=== PATIENT | male | born 1965 | race Caucasian/White ===

== ENCOUNTER → 2016-03-04 | Outpatient (CLI) | payer OTHER ==
[2016-03-04 10:27] LABS: ALBUMIN 3.9 GM/DL (3.2-5.2); ALBUMIN/GLOBULIN RATIO 1.11 (1.00-1.93); ALKALINE PHOSPHATASE 115 U/L (45-117); ALT/SGPT 33 U/L (12-78); ANION GAP 12 MEQ/L (8-16); AST/SGOT 21 U/L (15-37); BILIRUBIN,TOTAL 1.8 MG/DL (0.2-1.0); BLOOD UREA NITROGEN 18 MG/DL (7-18); CALCIUM LEVEL 8.2 MG/DL (8.5-10.1); CARBON DIOXIDE LEVEL 25 MEQ/L (21-32); CHLORIDE LEVEL 106 MEQ/L (98-107); CHOLESTEROL LEVEL 183 MG/DL (<200); CREATININE FOR GFR 1.06 MG/DL (0.70-1.30); GLOMERULAR FILTRATION RATE > 60.0 (>56); GLUCOSE, FASTING 113 MG/DL (70-105); POTASSIUM SERUM 4.1 MEQ/L (3.5-5.1); SODIUM LEVEL 143 MEQ/L (136-145); TOTAL PROTEIN 7.4 GM/DL (6.4-8.2); TRIGLYCERIDES LEVEL 759 MG/DL (<150)
== END ==
LOC: M LAB 09:09
PROVIDERS: ATTEND Family Medicine Addiction Medicine
DX: R81 Glycosuria (principal)

== ENCOUNTER → 2016-06-18 | Outpatient (CLI) | payer OTHER ==
[2016-06-18 19:33] LABS: ALBUMIN 3.7 GM/DL (3.2-5.2); ALKALINE PHOSPHATASE 112 U/L (45-117); BILIRUBIN,TOTAL 1.5 MG/DL (0.2-1.0); CALCIUM LEVEL 8.4 MG/DL (8.5-10.1); CHLORIDE LEVEL 100 MEQ/L (98-107); CHOLESTEROL LEVEL 209 MG/DL (<200); CREATININE FOR GFR 1.05 MG/DL (0.70-1.30); GLUCOSE, FASTING 181 MG/DL (70-105); POTASSIUM SERUM 3.7 MEQ/L (3.5-5.1); SODIUM LEVEL 138 MEQ/L (136-145)
[2016-06-18 20:01] LABS: AST/SGOT 51 U/L (15-37); TRIGLYCERIDES LEVEL 1756 MG/DL (<150)
[2016-06-18 20:18] LABS: ALT/SGPT 56 U/L (12-78)
[2016-06-18 20:35] LABS: ALBUMIN/GLOBULIN RATIO 1.03 (1.00-1.93); BLOOD UREA NITROGEN 11 MG/DL (7-18); TOTAL PROTEIN 7.3 GM/DL (6.4-8.2)
[2016-06-18 21:30] LABS: ANION GAP 8 MEQ/L (8-16); CARBON DIOXIDE LEVEL 30 MEQ/L (21-32)
== END ==
LOC: M LAB 16:31
PROVIDERS: ATTEND Family Medicine Addiction Medicine
DX: E78.5 Hyperlipidemia, unspecified (principal)

== ENCOUNTER → 2016-07-23 | Outpatient (CLI) | payer OTHER ==
[2016-07-23 10:39] LABS: ALBUMIN 3.7 GM/DL (3.2-5.2); ALBUMIN/GLOBULIN RATIO 1.06 (1.00-1.93); ALKALINE PHOSPHATASE 108 U/L (45-117); ALT/SGPT 54 U/L (12-78); ANION GAP 6 MEQ/L (8-16); AST/SGOT 26 U/L (15-37); BILIRUBIN,TOTAL 1.5 MG/DL (0.2-1.0); BLOOD UREA NITROGEN 17 MG/DL (7-18); CARBON DIOXIDE LEVEL 30 MEQ/L (21-32); CHLORIDE LEVEL 106 MEQ/L (98-107); CHOLESTEROL LEVEL 201 MG/DL (<200); CREATININE FOR GFR 1.13 MG/DL (0.70-1.30); GLOMERULAR FILTRATION RATE > 60.0 (>56); GLUCOSE, FASTING 116 MG/DL (70-105); POTASSIUM SERUM 3.8 MEQ/L (3.5-5.1); SODIUM LEVEL 142 MEQ/L (136-145); TOTAL PROTEIN 7.2 GM/DL (6.4-8.2); TRIGLYCERIDES LEVEL 690 MG/DL (<150)
== END ==
LOC: M LAB 09:33
PROVIDERS: ATTEND Family Medicine Addiction Medicine
DX: E78.5 Hyperlipidemia, unspecified (principal); R81 Glycosuria

== ENCOUNTER → 2016-11-05 | Outpatient (REF) | payer OTHER ==
[2016-11-05 12:25] LABS: ALBUMIN 3.9 GM/DL (3.2-5.2); ALBUMIN/GLOBULIN RATIO 1.15 (1.00-1.93); ALKALINE PHOSPHATASE 97 U/L (45-117); ALT/SGPT 41 U/L (12-78); ANION GAP 10 MEQ/L (8-16); AST/SGOT 23 U/L (15-37); BILIRUBIN,TOTAL 1.8 MG/DL (0.2-1.0); BLOOD UREA NITROGEN 18 MG/DL (7-18); CARBON DIOXIDE LEVEL 27 MEQ/L (21-32); CHLORIDE LEVEL 106 MEQ/L (98-107); CHOLESTEROL LEVEL 191 MG/DL (<200); CREATININE FOR GFR 1.14 MG/DL (0.70-1.30); GLOMERULAR FILTRATION RATE > 60.0 (>56); GLUCOSE, FASTING 118 MG/DL (70-105); SODIUM LEVEL 143 MEQ/L (136-145); TOTAL PROTEIN 7.3 GM/DL (6.4-8.2); TRIGLYCERIDES LEVEL 805 MG/DL (<150)
== END ==
LOC: M LAB REF 11:42
PROVIDERS: ATTEND Family Medicine Addiction Medicine
DX: I10 Essential (primary) hypertension (principal); E78.5 Hyperlipidemia, unspecified

== ENCOUNTER → 2017-02-03 | Outpatient (CLI) | payer OTHER ==
[2017-02-03 09:43] LABS: ALBUMIN 3.9 GM/DL (3.2-5.2); ALBUMIN/GLOBULIN RATIO 1.11 (1.00-1.93); ALKALINE PHOSPHATASE 111 U/L (45-117); ALT/SGPT 41 U/L (12-78); ANION GAP 9 MEQ/L (8-16); AST/SGOT 22 U/L (7-37); BILIRUBIN,TOTAL 1.7 MG/DL (0.2-1.0); BLOOD UREA NITROGEN 15 MG/DL (7-18); CALCIUM LEVEL 8.5 MG/DL (8.5-10.1); CARBON DIOXIDE LEVEL 26 MEQ/L (21-32); CHLORIDE LEVEL 105 MEQ/L (98-107); CHOLESTEROL LEVEL 195 MG/DL (<200); CREATININE FOR GFR 1.12 MG/DL (0.70-1.30); GLOMERULAR FILTRATION RATE > 60.0 (>56); GLUCOSE, FASTING 124 MG/DL (70-105); SODIUM LEVEL 140 MEQ/L (136-145); TOTAL PROTEIN 7.4 GM/DL (6.4-8.2); TRIGLYCERIDES LEVEL 945 MG/DL (<150)
== END ==
LOC: M LAB 08:57
PROVIDERS: ATTEND Family Medicine Addiction Medicine
DX: I10 Essential (primary) hypertension (principal); E78.5 Hyperlipidemia, unspecified

== ENCOUNTER → 2017-04-04 | Outpatient (REF) | payer OTHER ==
[2017-04-04 18:55] LABS: APPEARANCE, URINE CLEAR (CLEAR); BACTERIA, URINE AUTO NEGATIVE (NEGATIVE); BILIRUBIN, URINE AUTO NEGATIVE (NEGATIVE); BLOOD, URINE BLOOD 1+ (NEGATIVE); COLOR, URINE YELLOW (YELLOW); GLUCOSE, URINE (UA) AUTO NEGATIVE (NEGATIVE); KETONE, URINE AUTO TRACE mg/dL (NEGATIVE); LEUKOCYTE ESTERASE, URINE AUTO TRACE (NEGATIVE); MUCUS, URINE SMALL (NEGATIVE); NITRITE, URINE AUTO NEGATIVE (NEGATIVE); PROTEIN, URINE AUTO NEGATIVE (NEGATIVE); RBC, URINE AUTO 1 /HPF (0-3); SQUAMOUS EPITHELIAL CELL UR AU 0 /HPF (0-6); UROBILINOGEN, URINE AUTO 0.2 mg/dL (0.0-2.0); WBC, URINE AUTO 8 /HPF (0-3)
== END ==
LOC: M LAB REF 17:34
DX: N39.0 Urinary tract infection, site not specified (principal)
CPT/HCPCS: 81001

== ENCOUNTER → 2018-11-14 | Outpatient (CLI) | payer OTHER ==
[2018-11-14 18:45] LABS: BASO % 0.6 % (0.0-1.0); EOS # 0.4 10^3/uL (0.0-0.5); EOS % 5.8 % (0.0-3.0); HEMATOCRIT 50.2 % (42.0-52.0); HEMOGLOBIN 16.1 g/dl (13.5-17.5); LYMPH # 2.3 10^3/uL (1.5-5.0); LYMPH % 34.1 % (24.0-44.0); MEAN CORPUSCULAR HEMOGLOBIN 27.3 pg (27.0-33.0); MEAN CORPUSCULAR HGB CONC 32.1 g/dl (32.0-36.5); MEAN CORPUSCULAR VOLUME 85.1 fl (80.0-96.0); MONO # 0.5 10^3/uL (0.0-0.8); MONO % 7.9 % (0.0-5.0); NEUTROPHILS # 3.5 10^3/uL (1.5-8.5); NEUTROPHILS % 51.3 % (36.0-66.0); PLATELET COUNT, AUTOMATED 266 10^3/uL (150-450); WHITE BLOOD COUNT 6.7 10^3/uL (4.0-10.0)
[2018-11-14 18:57] LABS: ALBUMIN 3.8 GM/DL (3.2-5.2); ALT/SGPT 54 U/L (12-78); BILIRUBIN,TOTAL 1.6 MG/DL (0.2-1.0); BLOOD UREA NITROGEN 18 MG/DL (7-18); CALCIUM LEVEL 9.1 MG/DL (8.5-10.1); CARBON DIOXIDE LEVEL 28 MEQ/L (21-32); CHLORIDE LEVEL 104 MEQ/L (98-107); CHOLESTEROL LEVEL 192 MG/DL (<200); CREATININE FOR GFR 1.12 MG/DL (0.70-1.30); FREE T4 0.95 NG/DL (0.76-1.46); GLOMERULAR FILTRATION RATE > 60.0 (>56); GLUCOSE, FASTING 115 MG/DL (70-100); HDL CHOLESTEROL 32 MG/DL (>40); NON-HDL-C 160 MG/DL; POTASSIUM SERUM 3.8 MEQ/L (3.5-5.1); SODIUM LEVEL 141 MEQ/L (136-145); TOTAL PROTEIN 7.3 GM/DL (6.4-8.2); TRIGLYCERIDES LEVEL 693 MG/DL (<150)
[2018-11-14 19:01] LABS: HEMOGLOBIN A1c 6.1 %
== END ==
LOC: M WUC 10:13
PROVIDERS: ATTEND Physician Assistant
DX: Z13.29 Encounter for screening for other suspected endocrine disorder (principal); Z13.220 Encounter for screening for lipoid disorders

== ENCOUNTER 2019-07-20 10:50 | Emergency (ER) | payer OTHER ==
[~2019-07-20] VITALS: Ht 172.7 cm; Wt 93.2 kg
[2019-07-20] MEDS ORDERED: BENA20TA8 (11:01)
[2019-07-20] MEDS ORDERED: GEMF600T5 (11:01)
[2019-07-20] MEDS ORDERED: AMLO10TA5 (11:01)
[2019-07-20] MEDS ORDERED: NORC1TAB7 PO (12:39)
[2019-07-20 12:54] VITALS: BP 157/92
--- NOTE | 2019-07-20 14:25 | REP ---
REASON: Pain after trauma. There is a transverse fracture of the lateral malleolus with associated soft tissue swelling. Electronically Signed by Tulio Rose DO 07/20/2019 02:30 P
== END 2019-07-20 12:58 | disposition home or self-care (01) ==
LOC: M ED 10:50
DX: S82.61XA Displaced fracture of lateral malleolus of right fibula, initial encounter for closed fracture (principal); J30.2 Other seasonal allergic rhinitis; I10 Essential (primary) hypertension; X50.1XXA Overexertion from prolonged static or awkward postures, initial encounter; Y92.9 Unspecified place or not applicable; Y99.0 Civilian activity done for income or pay; Z87.891 Personal history of nicotine dependence; Z79.899 Other long term (current) drug therapy

== ENCOUNTER 2019-10-16 06:01 | Inpatient (IN) | payer OTHER ==
[~2019-10-16] VITALS: Ht 172.7 cm; Wt 85.2 kg
[~2019-10-16 06:01] MED LIST: AMLO1TAB25 PO; BENA20TA8 PO; GEMF600T5 PO; NORC1TAB7 PO
[2019-10-16] MEDS ORDERED: HumuLIN R (REGULAR) INSULIN (NovoLIN R) **100U/ML** PER UNIT IV ONE (07:00)
[2019-10-16] MEDS ORDERED: NS 1,000 ML IV ONE ×2 (07:00→10:00)
[2019-10-16 08:19] LABS: BASO # 0.1 10^3/uL (0.0-0.2); BASO % 0.6 % (0.0-1.0); EOS # 0.5 10^3/uL (0.0-0.5); EOS % 4.8 % (0.0-3.0); HEMATOCRIT 46.2 % (42.0-52.0); LYMPH % 10.1 % (24.0-44.0); MEAN CORPUSCULAR VOLUME 81.6 fl (80.0-96.0); MONO # 0.7 10^3/uL (0.0-0.8); MONO % 6.9 % (0.0-5.0); NEUTROPHILS # 7.6 10^3/uL (1.5-8.5); NEUTROPHILS % 76.7 % (36.0-66.0); PLATELET COUNT, AUTOMATED 237 10^3/uL (150-450); RED BLOOD COUNT 5.66 10^6/uL (4.30-6.10)
[2019-10-16] MEDS: BENAZEPRIL 5 MG TAB PO SCH (09:00)
[2019-10-16 09:09] LABS: BLOOD UREA NITROGEN 11 MG/DL (7-18); CALCIUM LEVEL 5.5 MG/DL (8.5-10.1); CARBON DIOXIDE LEVEL 14 MEQ/L (21-32); CHLORIDE LEVEL 92 MEQ/L (98-107); CREATININE FOR GFR 1.08 MG/DL (0.70-1.30); GLOMERULAR FILTRATION RATE > 60.0 (>56); GLUCOSE, FASTING 395 MG/DL (70-100); POTASSIUM SERUM 3.7 MEQ/L (3.5-5.1); SODIUM LEVEL 123 MEQ/L (136-145)
[2019-10-16 09:22] LABS: ACETONE/KETONE > 46.00 MG/DL (<2.81)
[2019-10-16 10:03] LABS: IONIZED CALCIUM 4.8 MG/DL (4.5-5.3)
[2019-10-16 10:40] LABS: HEMOGLOBIN 16.3 g/dl (13.5-17.5); MEAN CORPUSCULAR HEMOGLOBIN 28.8 pg (27.0-33.0); MEAN CORPUSCULAR HGB CONC 35.2 g/dl (32.0-36.5)
[2019-10-16 10:41] LABS: WHITE BLOOD COUNT 9.9 10^3/uL (4.0-10.0)
[2019-10-16 11:08] LABS: ALBUMIN 3.4 GM/DL (3.2-5.2); ALT/SGPT 52 U/L (12-78); BILIRUBIN,DIRECT 0.1 MG/DL (0.0-0.2); BILIRUBIN,TOTAL 1.1 MG/DL (0.2-1.0); TOTAL PROTEIN 7.8 GM/DL (6.4-8.2)
[2019-10-16 11:09] LABS: HEMOGLOBIN A1c 11.7 %
--- NOTE | 2019-10-16 11:47 | REPVR ---
PROCEDURE INFORMATION: Exam: XR Chest, 1 View Exam date and time: 10/16/2019 11:29 AM Age: 54 years old Clinical indication: Condition or disease; Other: Dka TECHNIQUE: Imaging protocol: XR of the chest Views: 1 view. COMPARISON: No relevant prior studies available. FINDINGS: Lungs: Unremarkable. No consolidation. Pleural space: Unremarkable. No pleural effusion. No pneumothorax. Heart/Mediastinum: Unremarkable. No cardiomegaly. Bones/joints: Unremarkable. IMPRESSION: No acute findings. Electronically signed by: Yury Amato On 10/16/2019 11:48:06 AM
[2019-10-16] MEDS: NS 1,000 ML IV SCH ×2 (12:21→20:45)
[2019-10-16 12:47] LABS: BILIRUBIN,TOTAL 1.3 MG/DL (0.2-1.0); CARBON DIOXIDE LEVEL 12 MEQ/L (21-32); CHLORIDE LEVEL 100 MEQ/L (98-107); GLOMERULAR FILTRATION RATE > 60.0 (>56); GLUCOSE, FASTING 298 MG/DL (70-100); POTASSIUM SERUM 3.8 MEQ/L (3.5-5.1); SODIUM LEVEL 126 MEQ/L (136-145)
[2019-10-16] MEDS ORDERED: CALCIUM GLUCONATE 1,000 MG in D5W MINI-BAG PLUS 100 ML IV ONE (13:00)
[2019-10-16 13:36] LABS: ALBUMIN 2.9 GM/DL (3.2-5.2); ALT/SGPT 45 U/L (12-78); BLOOD UREA NITROGEN 11 MG/DL (7-18); CALCIUM LEVEL 7.9 MG/DL (8.5-10.1); TOTAL PROTEIN 7.5 GM/DL (6.4-8.2)
[2019-10-16 13:46] VITALS: BP 155/93
--- NOTE | 2019-10-16 13:51 | HPEPDOC ---
[facility] Medical History & Physical Date of Admission Oct 16, 2019 Date of Service: Oct 16, 2019 Attending Physician: A History and Physical CHIEF COMPLAINT: polyuria, and epigastric pain HISTORY OF PRESENT ILLNESS: Mr. Maier is a 54 year old man with known history of Hypertension, hyperlipidemia, presented to hospital due to 1 week of polyuria and polydipsia. He initially went to his PCP yesterday and blood work was done, he got a call today that his sugar was quite high but the next available appointment is friday. he decided to come to hospital as he has not been feeling well in the past week. He mentioned feeling quite nauseated, associated with epigastric pain, not radiating. No fever. No chills. felt weak. had polyhagia and polydipsia and polyuria. No diarrhea. No cough. No toothache. On arrival noted to have DKA, given 2 liters of fluid and given Iv insulin, glucose improved, subsequent glucose improved, repeat cmp noted anion gap has closed. will admit for admission PAST MEDICAL HISTORY: 1. Hypertension 2. Hyperlipidemia 3. Recent right ankle fracture, no surgery PAST SURGICAL HISTORY: 1. appendectomy 2. back surgery SOCIAL HISTORY:lives with , does not smoke, or drink alcohol or drugs FAMILY HISTORY: mother has diabetes. ALLERGIES: Please see below. REVIEW OF SYSTEM: 10 point review of system, reviewed, negative except for those stated in HPI LABORATORY DATA: See below.Laboratory Tests 10/16/19 07:35 10/16/19 09:20 IMAGING: NONE done in ED, will obtain chest xray, abdominal xray MICROBIOLOGY: Please see below ASSESSMENT: 1. Diabetes Ketoacidosis 2. Diabetes mellitus type II, newly diagnoses 3. Hypertension 4. Hypocalcemia 5. Hyponatremia 6. Hyperlipidemia 7. Epigastric pain 8. Constipation PLAN: * Admit patient to med surg with telemetry due to hypocalcemia * IV calcium gluconate. No prior history of parathyroidectomy. * IV fluids to continue. Since repeat CMP showed improvement of anion gap, will change to levemir 10 units now. * BMP check in 6 hours. * Sliding scale insulin * Due to abdominal obesity, will add metformin as well. * diabetes education. * A1c is 11, goal is <7. * abdominal xray , lipase for epigastric discomfort. * Check urinalysis. * No clear signs of any infection * Diet: diabetes diet. * CODE: full code * DVT: lovenox * GI: PPI Vital Signs Vital Signs Date Time Temp Pulse Resp B/P (MAP) Pulse Ox O2 Delivery O2 Flow Rate FiO2 10/16/19 13:27 88 16 163/87 (112) 98 Room Air 10/16/19 06:02 98.0 Laboratory Data Labs 24H Laboratory Tests 2 10/16/19 07:35: Immature Granulocyte % (Auto) 0.9, Neutrophils (%) (Auto) 76.7H, Lymphocytes (%) (Auto) 10.1L, Monocytes (%) (Auto) 6.9H, Eosinophils (%) (Auto) 4.8H, Basophils (%) (Auto) 0.6, Neutrophils # (Auto) 7.6, Lymphocytes # (Auto) 1.0L, Monocytes # (Auto) 0.7, Eosinophils # (Auto) 0.5, Basophils # (Auto) 0.1, Nucleated Red Blood Cells % (auto) 0.0, Anion Gap 17H, Glomerular Filtration Rate > 60.0, Calcium Level 5.5*L, Whole Blood Ionized Calcium 4.8, Total Bilirubin 1.1H, Direct Bilirubin 0.1, Aspartate Amino Transf (AST/SGOT) 34, Alanine Aminotransferase (ALT/SGPT) 52, Alkaline Phosphatase 205H, Total Protein 7.8, Albumin 3.4, Albumin/Globulin Ratio 0.8, B-Hydroxybutyrate > 46.00H 10/16/19 09:20: Anion Gap 14, Glomerular Filtration Rate > 60.0, Calcium Level 7.9#L, Total Bilirubin 1.3H, Aspartate Amino Transf (AST/SGOT) 35, Alanine Aminotransferase (ALT/SGPT) 45, Alkaline Phosphatase 171H, Total Protein 7.5, Albumin 2.9L, Albumin/Globulin Ratio 0.6 10/16/19 10:45: Estimated Mean Plasma Glucose 289H, Hemoglobin A1c 11.7 CBC/BMP Laboratory Tests 10/16/19 07:35 10/16/19 09:20 Home Medications Scheduled Amlodipine Besylate (Amlodipine Besylate) 10 Mg Tablet, 10 MG PO DAILY Benazepril HCl (Benazepril HCl) 20 Mg Tablet, 20 MG PO DAILY PT RAN OUT OF MEDICATION IN MAY 2019 HAS NOT TAKEN SINCE. Gemfibrozil (Gemfibrozil) 600 Mg Tablet, 600 MG PO BID HAS BEEN TAKING MEDICATION ONLY IN THE MORNING NOT TWICE A DAY Allergies Coded Allergies: aspirin (Verified Allergy, Mild, hives, 10/16/19) SEASONAL ALLERGIES (Verified Allergy, Unknown, 07/20/19) A-FIB/CHADSVASC A-FIB History Current/History of A-Fib/PAF?: No Current PO Anticoag Therapy: No WALI MARSHALL MD Oct 16, 2019 13:51
[2019-10-16] MEDS: LEVEMIR (INSULIN DETEMIR) 1 UNITS/0.01ML SC SCH (14:09)
[2019-10-16] MEDS ORDERED: GLUCOSE 4GM CHEW TABLET PO PRN ×2 (14:15→19:15)
[2019-10-16] MEDS ORDERED: DEXTROSE 50% 50 ML SYRINGE IV PRN ×2 (14:15→19:15)
[2019-10-16] MEDS ORDERED: GLUCAGON INJ 1MG VIAL SC PRN ×2 (14:15→19:15)
--- NOTE | 2019-10-16 14:42 | REPVR ---
PROCEDURE INFORMATION: Exam: XR Abdomen, 1 View Exam date and time: 10/16/2019 2:39 PM Age: 54 years old Clinical indication: Abdominal pain; Additional info: Bloating, epigastric pain, no bm x days TECHNIQUE: Imaging protocol: XR of the abdomen. Views: Frontal supine view of the abdomen. 1 View. COMPARISON: No relevant prior studies available. FINDINGS: Gastrointestinal tract: Normal. No bowel dilation. Bones/joints: Postoperative spinal changes are seen with fixation and laminectomies. IMPRESSION: No acute abnormality. Electronically signed by: Yury Amato On 10/16/2019 14:42:33 PM
[2019-10-16] MEDS: amLODIPine 10 MG TAB PO SCH (17:20)
[2019-10-16] MEDS: MIRALAX *UNIT DOSE* 17GM PACKET PO SCH (17:21)
[2019-10-16] MEDS ORDERED: HumaLOG INSULIN (NovoLOG) PER UNIT SC SCH ×2 (17:30→21:00)
[2019-10-16 17:31] LABS: ALBUMIN 2.6 GM/DL (3.2-5.2); ALT/SGPT 45 U/L (12-78); BILIRUBIN,TOTAL 0.9 MG/DL (0.2-1.0); BLOOD UREA NITROGEN 9 MG/DL (7-18); CALCIUM LEVEL 7.4 MG/DL (8.5-10.1); CARBON DIOXIDE LEVEL 18 MEQ/L (21-32); CHLORIDE LEVEL 100 MEQ/L (98-107); CREATININE FOR GFR 0.96 MG/DL (0.70-1.30); GLOMERULAR FILTRATION RATE > 60.0 (>56); GLUCOSE, FASTING 332 MG/DL (70-100); LIPASE 1768 U/L (73-393); POTASSIUM SERUM 4.1 MEQ/L (3.5-5.1); SODIUM LEVEL 127 MEQ/L (136-145); TOTAL PROTEIN 6.4 GM/DL (6.4-8.2)
[2019-10-16] MEDS ORDERED: MORPHINE 2 MG/ML 1ML VIAL (J2270) IV PRN (19:15)
[2019-10-16] MEDS ORDERED: ONDANSETRON 4MG/2ML VIAL IV PRN (19:15)
[2019-10-16] MEDS: PANTOPRAZOLE 40MG VIAL (C9113 PER 1) IV SCH (19:50)
[2019-10-16] MEDS: ENOXAPARIN 40MG/0.4ML SYRINGE (J1650 PER 10MG) SC SCH (19:51)
[2019-10-16 20:00] VITALS: BP 148/83
[2019-10-16 21:44] LABS: CARBON DIOXIDE LEVEL 17 MEQ/L (21-32); CHLORIDE LEVEL 102 MEQ/L (98-107); CREATININE FOR GFR 0.95 MG/DL (0.70-1.30); GLOMERULAR FILTRATION RATE > 60.0 (>56); GLUCOSE, FASTING 274 MG/DL (70-100); POTASSIUM SERUM 3.2 MEQ/L (3.5-5.1); SODIUM LEVEL 130 MEQ/L (136-145)
[2019-10-16 22:00] VITALS: BP 148/83
[2019-10-16 22:22] LABS: BLOOD UREA NITROGEN 12 MG/DL (7-18); CALCIUM LEVEL 6.7 MG/DL (8.5-10.1)
[2019-10-16] MEDS ORDERED: POTASSIUM CHLORIDE 10% LIQ 20 MEQ/15 ML UDC PO ONE (22:30)
[2019-10-16] MEDS: HumaLOG INSULIN (NovoLOG) PER UNIT SC SCH (23:03)
[2019-10-17] VITALS: BP 144/81
[2019-10-17 04:00] VITALS: BP 122/67
[2019-10-17] MEDS: NS 1,000 ML IV SCH ×3 (04:00→20:00)
[2019-10-17 04:24] LABS: HEMATOCRIT 39.4 % (42.0-52.0); HEMOGLOBIN 14.8 g/dl (13.5-17.5); MEAN CORPUSCULAR HEMOGLOBIN 30.6 pg (27.0-33.0); MEAN CORPUSCULAR VOLUME 81.6 fl (80.0-96.0); PLATELET COUNT, AUTOMATED 221 10^3/uL (150-450); RED BLOOD COUNT 4.83 10^6/uL (4.30-6.10)
[2019-10-17 05:01] LABS: MEAN CORPUSCULAR HGB CONC 34.6 g/dl (32.0-36.5)
[2019-10-17] MEDS: HumaLOG INSULIN (NovoLOG) PER UNIT SC SCH ×4 (06:32→19:35)
--- NOTE | 2019-10-17 07:04 | REPVR ---
PROCEDURE INFORMATION: Exam: US Abdomen, Limited; Right Upper Quadrant Exam date and time: 10/17/2019 6:29 AM Age: 54 years old Clinical indication: Abdominal pain; Epigastric; Additional info: Eval for gallstone induced pancreatitis TECHNIQUE: Imaging protocol: US abdomen. Real time ultrasound with image documentation. Limited exam focused on the right upper quadrant. COMPARISON: No relevant prior studies available. FINDINGS: Liver: The liver is diffusely echogenic. No focal hepatic lesion is seen. Gallbladder: No calcified gallstones are seen. Echogenic nonshadowing gallbladder mural foci seen the largest measuring 4 mm. No sonographic Roach's sign was elicited. Common bile duct: The CBD is normal in caliber measuring 4-5 mm. Pancreas: There is a 1.4 x 1.7 x 1.6 cm pancreatic head cyst. Right kidney: The right kidney measures 13.0 x 4.9 x 4.9 cm. The right renal cortical parenchymal echogenicity is within normal limits. There is no renal mass, stone, cyst or hydronephrosis. IMPRESSION: 1. Fatty infiltration of the liver. 2. No cholelithiasis or sonographic evidence of cholecystitis. 3. Likely gallbladder wall polyps the largest measuring 4 mm. Follow-up ultrasound in 1 year is suggested. 4. 1.4 x 1.7 x 1.6 cm cystic lesion in the pancreatic head. Further characterization with MRI of the pancreas with contrast with MRCP is suggested. Electronically signed by: Ken Mckeon On 10/17/2019 07:04:14 AM
[2019-10-17 07:10] LABS: ALBUMIN 2.3 GM/DL (3.2-5.2); BILIRUBIN,TOTAL 1.2 MG/DL (0.2-1.0); BLOOD UREA NITROGEN 9 MG/DL (7-18); CALCIUM LEVEL 8.1 MG/DL (8.5-10.1); CARBON DIOXIDE LEVEL 19 MEQ/L (21-32); CHLORIDE LEVEL 104 MEQ/L (98-107); GLOMERULAR FILTRATION RATE > 60.0 (>56); GLUCOSE, FASTING 199 MG/DL (70-100); LIPASE 969 U/L (73-393); MAGNESIUM LEVEL 1.8 MG/DL (1.8-2.4); POTASSIUM SERUM 3.8 MEQ/L (3.5-5.1); SODIUM LEVEL 132 MEQ/L (136-145); TOTAL PROTEIN 6.2 GM/DL (6.4-8.2)
[2019-10-17 07:37] LABS: ALT/SGPT 38 U/L (12-78)
[2019-10-17 08:00] VITALS: BP 111/67
[2019-10-17] MEDS: amLODIPine 10 MG TAB PO SCH (08:40)
[2019-10-17] MEDS: BENAZEPRIL 5 MG TAB PO SCH (08:40)
[2019-10-17] MEDS: LEVEMIR (INSULIN DETEMIR) 1 UNITS/0.01ML SC SCH (08:41)
[2019-10-17] MEDS: MIRALAX *UNIT DOSE* 17GM PACKET PO SCH (08:48)
--- NOTE | 2019-10-17 10:47 | IPNPDOC ---
Text Note Date of Service The patient was seen on 10/17/19. NOTE Subjective: patient seen today, no events overnight. He feels much better. His pain is 1/10, he is comfortable. No vomiting. He is starving he said. passing gas, not having a BM yet but does not want a laxative. Objective: Vital Sign - Last 24 Hours 10/16/19 10/16/19 10/16/19 10/16/19 13:27 13:46 19:51 20:01 Temp 98.3 Pulse 88 86 Resp 16 20 20 16 B/P (MAP) 163/87 (112) 155/93 (113) Pulse Ox 98 98 98 O2 Delivery Room Air Room Air 10/16/19 10/17/19 10/17/19 10/17/19 22:00 00:00 04:00 08:00 Temp 98.0 98.4 98.0 98.5 Pulse 90 79 80 86 Resp 18 20 16 16 B/P (MAP) 148/83 (104) 144/81 (102) 122/67 (85) 111/67 (82) Pulse Ox 96 98 97 98 O2 Delivery Room Air Room Air Room Air Room Air 10/17/19 10/17/19 08:40 08:40 Pulse 86 B/P (MAP) 111/67 111/67 general: well groomed gentleman, not in any respiratory distress, awake, alert, oriented x 3. HEENT: anicteric sclerae, no nasal discharges, no throat exudates noted, EOM intact, PERRLA, no facial asymmetry NECK: supple,no carotid bruits noted, no tenderness CHEST: clear breath sounds, no rales or wheezing noted CVS: s1 and s2 distinct, no murmurs noted, ABdomen: obese abdomen, positive bowel sounds, no rigidity, no tenderness, negative granado's sign US abdomen IMPRESSION: 1. Fatty infiltration of the liver. 2. No cholelithiasis or sonographic evidence of cholecystitis. 3. Likely gallbladder wall polyps the largest measuring 4 mm. Follow-up ultrasound in 1 year is suggested. 4. 1.4 x 1.7 x 1.6 cm cystic lesion in the pancreatic head. Further characterization with MRI of the pancreas with contrast with MRCP is suggested. ASSESSMENT: 1. Diabetes Ketoacidosis, resolved 2. Diabetes mellitus type II, newly diagnosed, hyperglycemia, uncontrolled a1c 11 3. Hypertension 4. Hypocalcemia, improved 5. Hyponatremia 6. Hyperlipidemia 7. Epigastric pain, secondary to acute pancreatitis 8. Pancreatic cystic lesion noted in US 8. Constipation 9. Mildly elevated lfts on admission -- all diagnoses present on admission PLANS: * Glucose is controlled. no more pain, advanced diet to full liquid now. * Levemir 10 units to continue to avoid DKA. change to Ac and HS. * IV fluids to continue for now. No cholelithiasis, lfts trending down. * Discussed about US findings and MRI plans today. MRCP with and withou contrast. * Pain control * transfer to med surg. * moderate risk TEWALI MD Oct 17, 2019 10:41
[2019-10-17] MEDS ORDERED: GLUCAGON INJ 1MG VIAL SC PRN (11:00)
[2019-10-17] MEDS ORDERED: GLUCOSE 4GM CHEW TABLET PO PRN (11:00)
[2019-10-17] MEDS ORDERED: DEXTROSE 50% 50 ML SYRINGE IV PRN (11:00)
[2019-10-17] MEDS ORDERED: PROHANCE 279.3MG/ML 5ML VIAL As Ordered ONE (11:29)
[2019-10-17] MEDS ORDERED: PROHANCE 279.3MG/ML 15ML VIAL As Ordered ONE (11:30)
--- NOTE | 2019-10-17 13:15 | REPVR ---
PROCEDURE INFORMATION: Exam: MR Abdomen Without Contrast Exam date and time: 10/17/2019 11:39 AM Age: 54 years old Clinical indication: Pain and abnormal findings; Abnormal radiologic finding of the abdomen; Radiologic exam and body structure: Ultrasound; Abdominal pain; Epigastric; Patient HX: Abd pain, f/u to u/s on pacs and read by vrad; Additional info: Pancreatic lesion seen in US TECHNIQUE: Imaging protocol: MR of the abdomen without contrast. 3D rendering (Not supervised by radiologist): MIP and/or 3D reconstructed images were created by the technologist. COMPARISON: Abdomen, limited US 10/17/2019 6:13 AM FINDINGS: Liver: No mass. Gallbladder and bile ducts: The extrahepatic bile ducts are normal, measuring 5.7 mm. No choledocholithiasis. Pancreas: The pancreas is mildly enlarged with mild peripancreatic edema. Thickening of the anterior bilateral Gerota fascia is present. No pancreatic ductal dilatation. Contiguous pancreatic neck cysts are present measuring 2.0 cm and 0.9 cm. Spleen: Unremarkable. No splenomegaly. Adrenals: Unremarkable. No mass. Kidneys and ureters: Bilateral benign renal cysts, largest on the left measuring 2.1 cm. Stomach and bowel: 2nd and 3rd portion duodenal mural and periduodenal edema which is felt to be secondary. Intraperitoneal space: No free fluid. Arteries: No abdominal aortic aneurysm. Veins: The retropancreatic splenic vein and portal vein appear patent. Bones/joints: Unremarkable. Soft tissues: Unremarkable. IMPRESSION: 1. Pancreatitis. 2. Small intrapancreatic cysts which may represent pseudocysts. Comparison with prior studies recommended, if available. Otherwise followup to exclude other types of cyst (e.g. intraductal papillary mucinous neoplasia) may be helpful. 3. Bilateral benign renal cysts. 4. No extrahepatic biliary ductal dilatation or choledocholithiasis. COMMENTS: Consistent with the [employer]'s Incidental Findings Committee white paper (J Am Arnaldo Radiol 2018): Any incidental renal lesion less than 1.0 cm or classified as too small to characterize, or any incidental cystic renal lesion characterized as simple-appearing, is likely benign. No follow-up imaging is recommended for these lesions per consensus recommendations based on imaging criteria. Electronically signed by: Trevor Moreau On 10/17/2019 13:15:42 PM
--- NOTE | 2019-10-17 13:23 | REPVR ---
PROCEDURE INFORMATION: Exam: MR Abdomen Without and With Contrast Exam date and time: 10/17/2019 12:31 PM Age: 54 years old Clinical indication: Pain and abnormal findings; Abnormal radiologic finding of the abdomen; Radiologic exam and body structure: Ultrasound; Abdominal pain; Epigastric; Patient HX: Abd pain, f/u to u/s on pacs and read by vrad; Additional info: Pancreatic lesion seen in US TECHNIQUE: Imaging protocol: MR of the abdomen without and with intravenous contrast. Contrast material: PROHANCE; Contrast volume: 17 ml; Contrast route: INTRAVENOUS (IV); COMPARISON: Abdomen, limited US 10/17/2019 6:13 AM FINDINGS: Liver: Moderately decreased signal of the liver on out of phase imaging relative to in phase imaging. Gallbladder and bile ducts: The extrahepatic bile ducts are normal, measuring 5.7 mm. No choledocholithiasis. Pancreas: The pancreas is mildly enlarged with mild peripancreatic edema. Thickening of the anterior bilateral Gerota fascia is present. No pancreatic ductal dilatation. Contiguous pancreatic neck cysts are present measuring 2.0 cm and 0.9 cm. Spleen: Unremarkable. No splenomegaly. Adrenals: Unremarkable. No mass. Kidneys and ureters: Bilateral benign renal cysts, largest on the left measuring 2.1 cm. Stomach and bowel: 2nd and 3rd portion duodenal mural and periduodenal edema which is felt to be secondary. Intraperitoneal space: No free fluid. Arteries: No abdominal aortic aneurysm. Veins: The retropancreatic splenic vein and portal vein appear patent. Bones/joints: Bilateral lumbar spinal pedicle screw and jeanne systems. Soft tissues: Unremarkable. IMPRESSION: 1. Pancreatitis. 2. Small intrapancreatic cysts which may represent pseudocysts. Comparison with prior studies recommended, if available. Otherwise followup to exclude other types of cyst (e.g. intraductal papillary mucinous neoplasia) may be helpful. 3. Fatty infiltration of the liver. 4. Bilateral benign renal cysts. 5. No extrahepatic biliary ductal dilatation or choledocholithiasis. COMMENTS: Consistent with the [employer]'s Incidental Findings Committee white paper (J Am Arnaldo Radiol 2018): Any incidental renal lesion less than 1.0 cm or classified as too small to characterize, or any incidental cystic renal lesion characterized as simple-appearing, is likely benign. No follow-up imaging is recommended for these lesions per consensus recommendations based on imaging criteria. Electronically signed by: Trevor Moreau On 10/17/2019 13:24:24 PM
[2019-10-17] MEDS: ENOXAPARIN 40MG/0.4ML SYRINGE (J1650 PER 10MG) SC SCH (19:35)
[2019-10-17] MEDS: PANTOPRAZOLE 40MG VIAL (C9113 PER 1) IV SCH (19:36)
[2019-10-17 20:00] VITALS: BP 128/79
[2019-10-18] MEDS: NS 1,000 ML IV SCH ×2 (03:34→11:10)
[2019-10-18 04:42] VITALS: BP 130/74
[2019-10-18 04:42] LABS: HEMATOCRIT 37.9 % (42.0-52.0); HEMOGLOBIN 13.8 g/dl (13.5-17.5); MEAN CORPUSCULAR HEMOGLOBIN 29.7 pg (27.0-33.0); MEAN CORPUSCULAR HGB CONC 36.4 g/dl (32.0-36.5); MEAN CORPUSCULAR VOLUME 81.7 fl (80.0-96.0); PLATELET COUNT, AUTOMATED 218 10^3/uL (150-450); RED BLOOD COUNT 4.64 10^6/uL (4.30-6.10); WHITE BLOOD COUNT 5.5 10^3/uL (4.0-10.0)
[2019-10-18 05:38] VITALS: BP 134/79
[2019-10-18 05:56] LABS: ALBUMIN 2.2 GM/DL (3.2-5.2); ALT/SGPT 29 U/L (12-78); BILIRUBIN,TOTAL 0.7 MG/DL (0.2-1.0); BLOOD UREA NITROGEN 6 MG/DL (7-18); CALCIUM LEVEL 8.5 MG/DL (8.5-10.1); CARBON DIOXIDE LEVEL 21 MEQ/L (21-32); CHLORIDE LEVEL 106 MEQ/L (98-107); CHOLESTEROL LEVEL 363 MG/DL (<200); CHOLESTEROL RISK RATIO 17.285 (<5); GLOMERULAR FILTRATION RATE > 60.0 (>56); GLUCOSE, FASTING 183 MG/DL (70-100); HDL CHOLESTEROL 21 MG/DL (>40); LIPASE 788 U/L (73-393); NON-HDL-C 342 MG/DL; POTASSIUM SERUM 3.5 MEQ/L (3.5-5.1); SODIUM LEVEL 136 MEQ/L (136-145); TOTAL PROTEIN 6.1 GM/DL (6.4-8.2); TRIGLYCERIDES LEVEL 1738 MG/DL (<150)
[2019-10-18] MEDS: HumaLOG INSULIN (NovoLOG) PER UNIT SC SCH ×4 (07:30→21:52)
[2019-10-18] MEDS: amLODIPine 10 MG TAB PO SCH (09:18)
[2019-10-18] MEDS: LEVEMIR (INSULIN DETEMIR) 1 UNITS/0.01ML SC SCH (09:19)
[2019-10-18] MEDS: MIRALAX *UNIT DOSE* 17GM PACKET PO SCH (09:19)
[2019-10-18 14:00] VITALS: BP 144/82
--- NOTE | 2019-10-18 15:51 | IPNPDOC ---
Text Note Date of Service The patient was seen on 10/18/19. NOTE Hospital course: Mr. Maier is a 54 year old man with known HLD, and HTN presented to hospital due to polyuria, noted new onset diabetes, DKA, resolved. Epigastric pain noted pancreatitis. Neg gallstones. MRCP done due to cyst in pancreas. No new meds. Benazepril on hold, ?drug induced. No history of pancreatic cancer in family, MRCP showed no mass. Subjective: pain is improving, 5/10, no vomiting, no diarrhea. passing gas. No dyspnea. glucos eis controlled Vital Sign - Last 24 Hours 10/17/19 10/17/19 10/18/19 10/18/19 20:00 22:00 04:42 05:38 Temp 97.9 98.1 97.8 Pulse 85 78 61 Resp 20 18 20 B/P (MAP) 128/79 (95) 130/74 (92) 134/79 (97) Pulse Ox 95 96 97 O2 Delivery Room Air Room Air Room Air 10/18/19 10/18/19 09:18 14:00 Temp 98.0 Pulse 88 Resp 17 B/P (MAP) 118/76 144/82 (102) Pulse Ox 96 O2 Delivery Room Air general: well groomed gentleman, not in any respiratory distress, awake, alert, oriented x 3. HEENT: anicteric sclerae, no nasal discharges, no throat exudates noted, EOM intact, PERRLA, no facial asymmetry NECK: supple,no carotid bruits noted, no tenderness CHEST: clear breath sounds, no rales or wheezing noted CVS: s1 and s2 distinct, no murmurs noted, ABdomen: obese abdomen, positive bowel sounds, no rigidity, no tenderness, negative granado's sign Extremities: No edema, no calf tendenress noted PRODUCTION SUPV; awake, alert, oriented x 3. No focal deficits noted. No sensory deficits US abdomen IMPRESSION: 1. Fatty infiltration of the liver. 2. No cholelithiasis or sonographic evidence of cholecystitis. 3. Likely gallbladder wall polyps the largest measuring 4 mm. Follow-up ultrasound in 1 year is suggested. 4. 1.4 x 1.7 x 1.6 cm cystic lesion in the pancreatic head. Further characterization with MRI of the pancreas with contrast with MRCP is suggested. MRCP done: no mass, pancreatic cyst noted ASSESSMENT: 1. Acute pancreatitis secondary to severe hypertriglyceridemia 1. Diabetes Ketoacidosis, resolved 2. Diabetes mellitus type II, newly diagnosed, hyperglycemia, uncontrolled a1c 11 3. Hypertension 4. Hypocalcemia, improved 5. Hyponatremia 6. Hyperlipidemia 7. Epigastric pain, secondary to acute pancreatitis 8. Pancreatic cystic lesion noted in US 8. Constipation 9. Mildly elevated lfts on admission -- all diagnoses present on admission pLANS: continue with IV fluids, slowly advance diet as long as tolerated. pain control Noted Lipid screen - significantly elevated triglycerides. He has gemfibrozil as home med, but he is only taking once a day dosing. Last check of triglycerides was a while back he said. No to elevated LDL as well, once LFTs trends down, advised to add statin. continue with levemir. will add metformin for his a1c. it is 11. extensive discussion on his condition, diabetes care. Diabetes education to continue. moderate risk VS,Fishbone, I+O VS, Fishbone, I+O Laboratory Tests 10/18/19 04:10 Vital Signs Date Time Temp Pulse Resp B/P (MAP) Pulse Ox O2 Delivery O2 Flow Rate FiO2 10/18/19 14:00 98.0 88 17 144/82 (102) 96 Room Air I&O- Last 24 Hours up to 6 AM 10/18/19 06:00 Intake Total 3150 ml Output Total 3025 ml Balance 125 ml WALI MARSHALL MD Oct 18, 2019 15:51
[2019-10-18] MEDS: gemfibroziL 600 MG TAB PO SCH (17:00)
[2019-10-18] MEDS: ENOXAPARIN 40MG/0.4ML SYRINGE (J1650 PER 10MG) SC SCH (21:52)
[2019-10-18 22:00] VITALS: BP 158/88
[2019-10-18] MEDS: PANTOPRAZOLE 40MG TAB (PROTONIX) PO SCH (22:21)
[2019-10-19 06:00] VITALS: BP 105/66
[2019-10-19] MEDS: gemfibroziL 600 MG TAB PO SCH ×2 (08:41→18:14)
[2019-10-19] MEDS: LEVEMIR (INSULIN DETEMIR) 1 UNITS/0.01ML SC SCH (08:42)
[2019-10-19] MEDS: amLODIPine 10 MG TAB PO SCH (08:43)
[2019-10-19] MEDS: MIRALAX *UNIT DOSE* 17GM PACKET PO SCH (08:43)
[2019-10-19] MEDS: HumaLOG INSULIN (NovoLOG) PER UNIT SC SCH ×4 (08:43→20:54)
[2019-10-19 14:00] VITALS: BP 142/84
--- NOTE | 2019-10-19 17:52 | IPNPDOC ---
Date Seen The patient was seen on 10/19/19. Progress Note SUBJECTIVE: Blood sugars better controlled; however, increased levemir today, started statin in addition to fibrate. Needs to receive additional diabetic teaching with flex pen today and will see how he tolerates higher dose insulin over the day/night. Will need scripts on discharge for all materials and glucometer if we cannot provide one for him. Still not clear on what he should eat and not eat. Denies n/v/d, fevers, chills, abdominal pain, shortness of breath, chest pain. OBJECTIVE PHYSICAL EXAMINATION: VITAL SIGNS: Please see below. GENERAL: in NAD, resting in bed. 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 No focal deficits noted. No sensory deficits LABORATORY DATA, IMAGING STUDIES, MICROBIOLOGY: Please see below. US abdomen: 1. Fatty infiltration of the liver. 2. No cholelithiasis or sonographic evidence of cholecystitis. 3. Likely gallbladder wall polyps the largest measuring 4 mm. Follow-up ultrasound in 1 year is suggested. 4. 1.4 x 1.7 x 1.6 cm cystic lesion in the pancreatic head. Further characterization with MRI of the pancreas with contrast with MRCP is suggested. MRCP: no mass, pancreatic cyst noted ASSESSMENT: 54 y/o M with admitted for further treatment/management and education on new onset DM type II, resolved DKA, acute pancreatitis 2/2 to severe hypertriglyceridemia. PLAN: 1. Acute pancreatitis secondary to severe hypertriglyceridemia. Lipase trending down, abdominal pain improving. Tolerating diet well. Started on statin in addition to fibrate today but really needs strict management of uncontrolled DM type II. C/w treatment below, diet. 2. Diabetes mellitus type II, newly diagnosed, hyperglycemia. Resolved DKA. Uncontrolled HbA1c 11, BS >200 overnight, 190 this AM. Increased levemir further today, cover with ISS. Not starting PO metformin currently, as patient needs insulin more than anything now. C/w consistent carb diet, ISS, AC/HS finger sticks. Will need training with flex pen, glucometer. 3. Hypertension. Stable. 4. Hyperlipidemia. TG and cholesterol elevated. C/w fibrate and statin med. 5. Fatty liver 2/2 to HLD. C/w treatment above, needs close follow up with PCP, diet and exercise plan. 8. Pancreatic cystic lesion noted in US. F/u with PCP, will need repeat f/u as o/p. 9. DVT px. Enoxaparin. DISPOSITION: Currently admitted under acute inpatient. If tolerates insulin adjustment and receives additional education, discharge planned in AM. VS, I&O, 24H, Fishbone Vital Signs/I&O Vital Signs Date Time Temp Pulse Resp B/P (MAP) Pulse Ox O2 Delivery O2 Flow Rate FiO2 10/19/19 14:00 97.5 94 22 142/84 (103) 96 Room Air I&O- Last 24 Hours up to 6 AM 10/19/19 05:59 Intake Total 1997 ml Output Total 3850 ml Balance -1853 ml Current Medications Current Medications Medications (Trade) Dose Ordered Sig/Neftaly Route PRN Reason Start Time Stop Time Status Last Admin Dose Admin Amlodipine Besylate (Norvasc) 10 mg DAILY PO 10/16/19 09:00 10/19/19 08:43 Benazepril HCl (Lotensin) 5 mg DAILY PO 10/16/19 09:00 10/17/19 18:51 DC 10/17/19 08:40 Dextrose (Dextrose 50%) 25 ml ASDIRECTED PRN IV SEE LABEL COMMENTS 10/16/19 14:15 10/16/19 19:21 DC Dextrose (Dextrose 50%) 25 ml ASDIRECTED PRN IV SEE LABEL COMMENTS 10/16/19 19:15 10/17/19 10:48 DC Dextrose (Dextrose 50%) 25 ml ASDIRECTED PRN IV SEE LABEL COMMENTS 10/17/19 11:00 Enoxaparin Sodium (Lovenox) 40 mg QHS SC 10/16/19 21:00 10/18/19 21:52 Gemfibrozil (Lopid) 600 mg BID@0730,1730 PO 10/18/19 17:30 10/19/19 08:41 Glucagon (Glucagon) 1 mg ASDIRECTED PRN SC SEE LABEL COMMENTS 10/16/19 14:15 10/16/19 19:21 DC Glucagon (Glucagon) 1 mg ASDIRECTED PRN SC SEE LABEL COMMENTS 10/16/19 19:15 10/17/19 10:48 DC Glucagon (Glucagon) 1 mg ASDIRECTED PRN SC SEE LABEL COMMENTS 10/17/19 11:00 Glucose (Glucose) 16 GM ASDIRECTED PRN PO SEE LABEL COMMENTS 10/16/19 14:15 10/16/19 19:22 DC Glucose (Glucose) 16 GM ASDIRECTED PRN PO SEE LABEL COMMENTS 10/16/19 19:15 10/17/19 10:48 DC Glucose (Glucose) 16 GM ASDIRECTED PRN PO SEE LABEL COMMENTS 10/17/19 11:00 Home Med (Med Rec Complete!) ASDIRECTED XX 10/16/19 12:00 10/16/19 12:02 DC Insulin Detemir (Levemir Insulin) 10 units DAILY TN 10/16/19 09:00 10/19/19 08:44 DC 10/19/19 08:42 Insulin Detemir (Levemir Insulin) 12 units DAILY TN 10/20/19 09:00 Insulin Human Lispro (HumaLOG INSULIN) SEE PROTOCOL TABLE AC TN 10/16/19 17:30 10/16/19 19:12 DC 10/16/19 17:21 Insulin Human Lispro (HumaLOG INSULIN) SEE PROTOCOL TABLE AC TN 10/17/19 12:00 10/19/19 13:14 Insulin Human Lispro (HumaLOG INSULIN) SEE PROTOCOL TABLE Q6H TN 10/17/19 00:00 10/17/19 10:55 DC 10/17/19 06:32 Insulin Human Lispro (HumaLOG INSULIN) SEE PROTOCOL TABLE QHS TN 10/16/19 21:00 10/16/19 19:12 DC Insulin Human Lispro (HumaLOG INSULIN) SEE PROTOCOL TABLE QHS TN 10/17/19 21:00 10/18/19 21:52 Morphine Sulfate (Morphine Sulfate Inj) 2 mg Q4H PRN IV MODERATE PAIN (PS 5-7) 10/16/19 19:15 10/16/19 19:51 Ondansetron HCl (ZOFRAN INJection) 4 mg Q6HP PRN IV NAUSEA OR VOMITING 10/16/19 19:15 Pantoprazole Sodium (Protonix) 40 mg DAILY@2100 PO 10/18/19 21:00 10/18/19 22:21 Pantoprazole Sodium (Protonix) 40 mg Q24H IV 10/16/19 21:00 10/18/19 22:15 DC 10/17/19 19:36 Polyethylene Glycol (Miralax) 1 pkt DAILY PO 10/16/19 09:00 10/18/19 09:19 Sodium Chloride 1,000 ml @ 125 mls/hr Q8H IV 10/16/19 12:00 10/18/19 22:05 DC 10/18/19 11:10 Allergies Coded Allergies: aspirin (Verified Allergy, Mild, hives, 10/16/19) SEASONAL ALLERGIES (Verified Allergy, Unknown, 07/20/19) Cesia Mosher MD Oct 19, 2019 17:52
[2019-10-19] MEDS ORDERED: LEVE1INJ5 SC (18:13)
[2019-10-19] MEDS ORDERED: CRES10TA PO (18:13)
[2019-10-19] MEDS: ENOXAPARIN 40MG/0.4ML SYRINGE (J1650 PER 10MG) SC SCH (20:54)
[2019-10-19] MEDS: PANTOPRAZOLE 40MG TAB (PROTONIX) PO SCH (20:54)
[2019-10-19] MEDS ORDERED: ROSUVASTATIN 10 MG TAB (CRESTOR) PO SCH (21:00)
[2019-10-19 22:00] VITALS: BP 149/80
[2019-10-20 06:00] VITALS: BP 106/68
[2019-10-20] MEDS ORDERED: BASA100I SC ×2 (08:48→11:34)
[2019-10-20] MEDS ORDERED: ATOR1TAB21 PO (08:48)
[2019-10-20] MEDS: MIRALAX *UNIT DOSE* 17GM PACKET PO SCH (09:00)
[2019-10-20] MEDS ORDERED: LEVEMIR (INSULIN DETEMIR) 1 UNITS/0.01ML SC SCH (09:00)
[2019-10-20 09:16] LABS: ALBUMIN 2.7 GM/DL (3.2-5.2); ALT/SGPT 43 U/L (12-78); BILIRUBIN,TOTAL 1.1 MG/DL (0.2-1.0); BLOOD UREA NITROGEN 9 MG/DL (7-18); CALCIUM LEVEL 8.9 MG/DL (8.5-10.1); CARBON DIOXIDE LEVEL 30 MEQ/L (21-32); CHLORIDE LEVEL 95 MEQ/L (98-107); CREATININE FOR GFR 0.71 MG/DL (0.70-1.30); GLOMERULAR FILTRATION RATE > 60.0 (>56); GLUCOSE, FASTING 253 MG/DL (70-100); POTASSIUM SERUM 3.2 MEQ/L (3.5-5.1); SODIUM LEVEL 132 MEQ/L (136-145); TOTAL PROTEIN 6.4 GM/DL (6.4-8.2)
[2019-10-20 09:20] VITALS: BP 149/89
[2019-10-20] MEDS: amLODIPine 10 MG TAB PO SCH (09:20)
[2019-10-20] MEDS: HumaLOG INSULIN (NovoLOG) PER UNIT SC SCH ×2 (09:20→11:59)
[2019-10-20] MEDS: gemfibroziL 600 MG TAB PO SCH (09:20)
[2019-10-20 09:45] LABS: HEMATOCRIT 38.3 % (42.0-52.0); HEMOGLOBIN 13.1 g/dl (13.5-17.5); MEAN CORPUSCULAR HEMOGLOBIN 27.8 pg (27.0-33.0); MEAN CORPUSCULAR HGB CONC 34.2 g/dl (32.0-36.5); MEAN CORPUSCULAR VOLUME 81.3 fl (80.0-96.0); PLATELET COUNT, AUTOMATED 251 10^3/uL (150-450); RED BLOOD COUNT 4.71 10^6/uL (4.30-6.10); WHITE BLOOD COUNT 4.7 10^3/uL (4.0-10.0)
--- NOTE | 2019-10-20 17:49 | DS.PDOC ---
Discharge Summary General Date of Admission Oct 16, 2019 at 13:00 Date of Discharge 10/20/19 Attending Physician: Cesia Mosher MD Discharge Summary HPI: Mr. Maier is a 54 year old man with known history of Hypertension, hyperlipidemia, presented to hospital due to 1 week of polyuria and polydipsia. He initially went to his PCP yesterday and blood work was done, he got a call to day that his sugar was quite high but the next available appointment is friday. he decided to come to hospital as he has not been feeling well in the past week. He mentioned feeling quite nauseated, associated with epigastric pain, not radiating. No fever. No chills. felt weak. had polyhagia and polydipsia and polyuria. No diarrhea. No cough. No toothache. On arrival noted to have DKA, given 2 liters of fluid and given Iv insulin, glucose improved, subsequent glucose improved, repeat cmp noted anion gap has closed. Admitted to ICU with insulin gtt for further care/management of DKA. HOSPITAL COURSE: HbA1c was found to be >11, new onset diabetes. TG elevated >1000 with acute pancreatitis on CT abdomen. He was later transitioned off insulin gtt to ISS, levemir daily, restarted on fibrate and started on statin medications. Blood sugars markedly improved with coverage and he recieved training with insulins during his stay. It was decided to discharge home on 10/20/19 with new glucometer, diabetic training by nutrition and nursing, aida reddy. patient is to check blood sugars four times daily 3x/week, record on blood sugar journal and f/u with PCP within 1-2 weeks after discharge. At time of discharge, patient denied abdominal pain and was tolerating consistent carbohydrate diet well, hydrating well. He denied chest pain, n/v/d, fevers, chills, shortness of breath also. ROS: neg except for what is mentioned above. PMH: 1. Hypertension 2. Hyperlipidemia 3. Recent right ankle fracture, no surgery 4. Newly diagnosed DM type II PSurgHx: 1. appendectomy 2. back surgery PSocialHx: lives with , does not smoke, or drink alcohol or drugs FamHx: mother has diabetes. ALLERGIES: Please see below. PHYSICAL EXAMINATION: VITAL SIGNS: Please see below. GENERAL: in NAD, resting in bed. HEENT: anicteric sclerae, no nasal discharges, no throat exudates noted, EOM intact, PERRLA, no facial asymmetry NECK: supple,no carotid bruits noted, no tenderness CHEST: clear breath sounds, no rales or wheezing noted CVS: s1 and s2 distinct, no murmurs noted, ABdomen: obese abdomen, positive bowel sounds, no rigidity, no tenderness, negat kendy Roach's sign Extremities: No edema, no calf tenderness noted GL[employer]ER; awake, alert, oriented x 3. No focal deficits noted. No sensory deficits LABORATORY DATA, IMAGING STUDIES, MICROBIOLOGY: Please see below. US abdomen: 1. Fatty infiltration of the liver. 2. No cholelithiasis or sonographic evidence of cholecystitis. 3. Likely gallbladder wall polyps the largest measuring 4 mm. Follow-up ultrasound in 1 year is suggested. 4. 1.4 x 1.7 x 1.6 cm cystic lesion in the pancreatic head. Further characterization with MRI of the pancreas with contrast with MRCP is suggested. MRCP: no mass, pancreatic cyst noted ASSESSMENT: 54 y/o M with admitted for further treatment/management and education on new onset DM type II, resolved DKA, acute pancreatitis 2/2 to severe hypertriglyceridemia. PLAN: 1. Acute pancreatitis secondary to severe hypertriglyceridemia. Lipase trending down, abdominal pain resolved. Tolerating diet well. Started on statin in addition to fibrate today but really needs strict management of uncontrolled DM type II. C/w treatment below, diet. 2. Diabetes mellitus type II, newly diagnosed, hyperglycemia. Resolved DKA. Uncontrolled HbA1c 11, BS better controlled. Increased levemir furtherto 19USC daily. Not starting PO metformin currently, as patient needs insulin more than anything now. Would recommend PCP to consider adding metformin BID with close monitoring. C/w consistent carb diet, ISS, AC/HS finger sticks 3 xweekly. Rece ived training with flex pen, glucometer. 3. Hypertension. Stable. 4. Hyperlipidemia. TG and cholesterol elevated. C/w fibrate and statin med. 5. Fatty liver 2/2 to HLD. C/w treatment above, needs close follow up with PCP, diet and exercise plan. 8. Pancreatic cystic lesion noted in US. F/u with PCP, will need repeat f/u as o/p. DISPOSITION: Discharged home today in improved condition. F/u with PCP within 1- 2 weeks after discharge. TIME SPENT ON DISCHARGE: Greater than 30 minutes. Vital Signs/I&Os Vital Signs Date Time Temp Pulse Resp B/P (MAP) Pulse Ox O2 Delivery O2 Flow Rate FiO2 10/20/19 09:20 87 149/89 10/20/19 06:00 97.7 18 92 Room Air I&O- Last 24 Hours up to 6 AM 10/20/19 06:00 Intake Total 3490 ml Output Total 4050 ml Balance -560 ml Laboratory Data Labs 24H Laboratory Tests 2 10/20/19 07:08: Nucleated Red Blood Cells % (auto) 0.0, Anion Gap 7L, Glomerular Filtration Rate > 60.0, Calcium Level 8.9, Total Bilirubin 1.1#H, Aspartate Amino Transf (AST/SGOT) 41H, Alanine Aminotransferase (ALT/SGPT) 43, Alkaline Phosphatase 150H, Total Protein 6.4, Albumin 2.7#L, Albumin/Globulin Ratio 0.7 CBC/BMP Laboratory Tests 10/20/19 07:08 Discharge Medications Scheduled Amlodipine Besylate (Amlodipine Besylate) 10 Mg Tablet, 10 MG PO DAILY, (Reported) Atorvastatin Calcium (Atorvastatin Calcium) 20 Mg Tablet, 20 MG PO DAILY Benazepril HCl (Benazepril HCl) 20 Mg Tablet, 20 MG PO DAILY, (Reported) PT RAN OUT OF MEDICATION IN MAY 2019 HAS NOT TAKEN SINCE. Gemfibrozil (Gemfibrozil) 600 Mg Tablet, 600 MG PO BID, (Reported) HAS BEEN TAKING MEDICATION ONLY IN THE MORNING NOT TWICE A DAY Insulin Glargine,Hum.rec.anlog (Basaglar Kwikpen U-100) 100 Unit/1 Ml Insuln.pen, 19 UNIT SC DAILY Allergies Coded Allergies: aspirin (Verified Allergy, Mild, hives, 10/16/19) SEASONAL ALLERGIES (Verified Allergy, Unknown, 07/20/19) Current Medications Current Medications Medications (Trade) Dose Ordered Sig/Neftaly Route PRN Reason Start Time Stop Time Status Last Admin Dose Admin Amlodipine Besylate (Norvasc) 10 mg DAILY PO 10/16/19 09:00 10/20/19 13:40 DC 10/20/19 09:20 Benazepril HCl (Lotensin) 5 mg DAILY PO 10/16/19 09:00 10/17/19 18:51 DC 10/17/19 08:40 Dextrose (Dextrose 50%) 25 ml ASDIRECTED PRN IV SEE LABEL COMMENTS 10/16/19 14:15 10/16/19 19:21 DC Dextrose (Dextrose 50%) 25 ml ASDIRECTED PRN IV SEE LABEL COMMENTS 10/16/19 19:15 10/17/19 10:48 DC Dextrose (Dextrose 50%) 25 ml ASDIRECTED PRN IV SEE LABEL COMMENTS 10/17/19 11:00 10/20/19 13:40 DC Enoxaparin Sodium (Lovenox) 40 mg QHS SC 10/16/19 21:00 10/20/19 13:40 DC 10/19/19 20:54 Gemfibrozil (Lopid) 600 mg BID@0730,1730 PO 10/18/19 17:30 10/20/19 13:40 DC 10/20/19 09:20 Glucagon (Glucagon) 1 mg ASDIRECTED PRN SC SEE LABEL COMMENTS 10/16/19 14:15 10/16/19 19:21 DC Glucagon (Glucagon) 1 mg ASDIRECTED PRN SC SEE LABEL COMMENTS 10/16/19 19:15 10/17/19 10:48 DC Glucagon (Glucagon) 1 mg ASDIRECTED PRN SC SEE LABEL COMMENTS 10/17/19 11:00 10/20/19 13:40 DC Glucose (Glucose) 16 GM ASDIRECTED PRN PO SEE LABEL COMMENTS 10/16/19 14:15 10/16/19 19:22 DC Glucose (Glucose) 16 GM ASDIRECTED PRN PO SEE LABEL COMMENTS 10/16/19 19:15 10/17/19 10:48 DC Glucose (Glucose) 16 GM ASDIRECTED PRN PO SEE LABEL COMMENTS 10/17/19 11:00 10/20/19 13:40 DC Home Med (Med Rec Complete!) ASDIRECTED XX 10/16/19 12:00 10/16/19 12:02 DC Insulin Detemir (Levemir Insulin) 10 units DAILY SC 10/16/19 09:00 10/19/19 08:44 DC 10/19/19 08:42 Insulin Detemir (Levemir Insulin) 12 units DAILY SC 10/20/19 09:00 10/20/19 13:40 DC 10/20/19 09:21 Insulin Human Lispro (HumaLOG INSULIN) SEE PROTOCOL TABLE AC SC 10/16/19 17:30 10/16/19 19:12 DC 10/16/19 17:21 Insulin Human Lispro (HumaLOG INSULIN) SEE PROTOCOL TABLE AC WA 10/17/19 12:00 10/20/19 13:40 DC 10/20/19 11:59 Insulin Human Lispro (HumaLOG INSULIN) SEE PROTOCOL TABLE Q6H WA 10/17/19 00:00 10/17/19 10:55 DC 10/17/19 06:32 Insulin Human Lispro (HumaLOG INSULIN) SEE PROTOCOL TABLE QHS WA 10/16/19 21:00 10/16/19 19:12 DC Insulin Human Lispro (HumaLOG INSULIN) SEE PROTOCOL TABLE QHS WA 10/17/19 21:00 10/20/19 13:40 DC 10/19/19 20:54 Morphine Sulfate (Morphine Sulfate Inj) 2 mg Q4H PRN IV MODERATE PAIN (PS 5-7) 10/16/19 19:15 10/20/19 13:40 MS 10/16/19 19:51 Ondansetron HCl (ZOFRAN INJection) 4 mg Q6HP PRN IV NAUSEA OR VOMITING 10/16/19 19:15 10/20/19 13:40 MS Pantoprazole Sodium (Protonix) 40 mg DAILY@2100 PO 10/18/19 21:00 10/20/19 13:40 DC 10/19/19 20:54 Pantoprazole Sodium (Protonix) 40 mg Q24H IV 10/16/19 21:00 10/18/19 22:15 MS 10/17/19 19:36 Polyethylene Glycol (Miralax) 1 pkt DAILY PO 10/16/19 09:00 10/20/19 13:40 DC 10/18/19 09:19 Rosuvastatin Calcium (Crestor) 5 mg QHS PO 10/19/19 21:00 10/20/19 13:40 DC 10/19/19 20:54 Sodium Chloride 1,000 ml @ 125 mls/hr Q8H IV 10/16/19 12:00 10/18/19 22:05 MS 10/18/19 11:10 Cesia Mosher MD Oct 20, 2019 17:49
--- NOTE | 2019-11-03 11:40 | ECGEPIP ---
[facility] - ED Test Date: 2019-10-16 Pat Name: CRISTOFER MICHAEL Department: Room: - Gender: Male Therapist Speech: eduardo : 1965 Requested By: John Luis Order Number: [id number] Reading MD: Naty Davis Measurements Intervals [place] Rate: 89 P: 62 [place]: 137 QRS: 72 QRSD: 102 T: 50 QT: 353 QTc: 429 Interpretive Statements SINUS RHYTHM NONSPECIFIC T-WAVE ABNORMALITY SEE SCANNED DOWNTIME REPORT
== END 2019-10-20 13:30 | disposition home or self-care (01) | DRG 282 ==
LOC: M ED 06:01 → M ED INP 13:00 → ENRESERV 13:18 → M ICU 13:33 → M MSPAV 10-18 05:35
PROVIDERS: ADMIT Internal Medicine; ATTEND Internal Medicine
DX: K85.90 Acute pancreatitis without necrosis or infection, unspecified (principal); E11.10 Type 2 diabetes mellitus with ketoacidosis without coma; E11.65 Type 2 diabetes mellitus with hyperglycemia; E83.51 Hypocalcemia; E78.1 Pure hyperglyceridemia; E78.5 Hyperlipidemia, unspecified; Z79.899 Other long term (current) drug therapy; Z88.6 Allergy status to analgesic agent; I10 Essential (primary) hypertension; E87.1 Hypo-osmolality and hyponatremia; K59.00 Constipation, unspecified

== ENCOUNTER → 2019-11-06 | Outpatient (CLI) | payer OTHER ==
[~2019-11-06] MED LIST changes: +ATOR1TAB21 PO; +BASA100I SC; +CRES10TA PO; +LEVE1INJ5 SC
[2019-11-06 15:36] LABS: BASO % 0.8 % (0.0-1.0); EOS # 0.5 10^3/uL (0.0-0.5); EOS % 10.4 % (0.0-3.0); HEMATOCRIT 43.5 % (42.0-52.0); LYMPH # 1.4 10^3/uL (1.5-5.0); LYMPH % 28.3 % (24.0-44.0); MEAN CORPUSCULAR HEMOGLOBIN 28.2 pg (27.0-33.0); MEAN CORPUSCULAR HGB CONC 32.2 g/dl (32.0-36.5); MEAN CORPUSCULAR VOLUME 87.5 fl (80.0-96.0); MONO # 0.4 10^3/uL (0.0-0.8); MONO % 8.6 % (0.0-5.0); NEUTROPHILS # 2.6 10^3/uL (1.5-8.5); NEUTROPHILS % 51.7 % (36.0-66.0); PLATELET COUNT, AUTOMATED 289 10^3/uL (150-450); RED BLOOD COUNT 4.97 10^6/uL (4.30-6.10)
[2019-11-06 16:04] LABS: ALBUMIN 3.6 GM/DL (3.2-5.2); ALT/SGPT 42 U/L (12-78); BILIRUBIN,TOTAL 0.8 MG/DL (0.2-1.0); BLOOD UREA NITROGEN 16 MG/DL (7-18); CALCIUM LEVEL 9.1 MG/DL (8.5-10.1); CARBON DIOXIDE LEVEL 27 MEQ/L (21-32); CHLORIDE LEVEL 108 MEQ/L (98-107); CREATININE FOR GFR 0.91 MG/DL (0.70-1.30); GLOMERULAR FILTRATION RATE > 60.0 (>56); GLUCOSE, FASTING 135 MG/DL (70-100); POTASSIUM SERUM 3.8 MEQ/L (3.5-5.1); SODIUM LEVEL 139 MEQ/L (136-145)
== END ==
LOC: M WUC 08:35
PROVIDERS: ATTEND Physician Assistant
DX: E11.65 Type 2 diabetes mellitus with hyperglycemia (principal)

== ENCOUNTER → 2020-02-02 | Outpatient (CLI) | payer OTHER ==
[2020-02-02 10:55] LABS: HEMOGLOBIN A1c 5.4 %
[2020-02-02 11:18] LABS: ALBUMIN 3.9 GM/DL (3.2-5.2); ALT/SGPT 31 U/L (12-78); BILIRUBIN,TOTAL 0.7 MG/DL (0.2-1.0); BLOOD UREA NITROGEN 20 MG/DL (7-18); CARBON DIOXIDE LEVEL 27 MEQ/L (21-32); CHLORIDE LEVEL 106 MEQ/L (98-107); CHOLESTEROL LEVEL 181 MG/DL (<200); CHOLESTEROL RISK RATIO 4.414 (<5); CREATININE FOR GFR 0.96 MG/DL (0.70-1.30); GLOMERULAR FILTRATION RATE > 60.0 (>56); GLUCOSE, FASTING 93 MG/DL (70-100); HDL CHOLESTEROL 41 MG/DL (>40); LDL CHOLESTEROL 115 MG/DL (<100); LIPASE 161 U/L (73-393); NON-HDL-C 140 MG/DL; POTASSIUM SERUM 4.3 MEQ/L (3.5-5.1); SODIUM LEVEL 140 MEQ/L (136-145); TOTAL PROTEIN 7.2 GM/DL (6.4-8.2); TRIGLYCERIDES LEVEL 127 MG/DL (<150)
[2020-02-02 18:02] LABS: CREATININE, URINE 90.7 MG/DL; MALB URINE SIEMENS 14.5 MG/L; MAU/CREAT RATIO 15.9 MCG/MG (0.0-30.0)
== END ==
LOC: M WUC 08:46
PROVIDERS: ATTEND Physician Assistant
DX: E11.9 Type 2 diabetes mellitus without complications (principal); E78.2 Mixed hyperlipidemia

== ENCOUNTER → 2020-04-29 | Outpatient (CLI) | payer OTHER ==
[2020-04-29 09:29] LABS: BASO % 0.6 % (0.0-1.0); EOS # 0.4 10^3/uL (0.0-0.5); EOS % 5.2 % (0.0-3.0); HEMATOCRIT 48.1 % (42.0-52.0); HEMOGLOBIN 15.6 g/dl (13.5-17.5); LYMPH # 1.8 10^3/uL (1.5-5.0); LYMPH % 25.8 % (24.0-44.0); MEAN CORPUSCULAR HGB CONC 32.4 g/dl (32.0-36.5); MEAN CORPUSCULAR VOLUME 83.4 fl (80.0-96.0); MONO # 0.5 10^3/uL (0.0-0.8); MONO % 7.5 % (2.0-8.0); NEUTROPHILS # 4.3 10^3/uL (1.5-8.5); NEUTROPHILS % 60.5 % (36.0-66.0); PLATELET COUNT, AUTOMATED 273 10^3/uL (150-450); RED BLOOD COUNT 5.77 10^6/uL (4.30-6.10); WHITE BLOOD COUNT 7.1 10^3/uL (4.0-10.0)
[2020-04-29 09:51] LABS: HEMOGLOBIN A1c 5.2 %
[2020-04-29 10:03] LABS: ALBUMIN 4.1 GM/DL (3.2-5.2); ALT/SGPT 28 U/L (12-78); BLOOD UREA NITROGEN 21 MG/DL (7-18); CALCIUM LEVEL 9.4 MG/DL (8.5-10.1); CARBON DIOXIDE LEVEL 29 MEQ/L (21-32); CHLORIDE LEVEL 106 MEQ/L (98-107); CREATININE FOR GFR 1.09 MG/DL (0.70-1.30); GLOMERULAR FILTRATION RATE > 60.0 (>56); GLUCOSE, FASTING 105 MG/DL (70-100); POTASSIUM SERUM 4.3 MEQ/L (3.5-5.1); SODIUM LEVEL 139 MEQ/L (136-145); TOTAL PROTEIN 7.5 GM/DL (6.4-8.2)
== END ==
LOC: M LAB 08:53
PROVIDERS: ATTEND Physician Assistant
DX: E11.9 Type 2 diabetes mellitus without complications (principal)

== ENCOUNTER → 2020-08-05 | Outpatient (CLI) | payer OTHER ==
[~2020-08-05] MED LIST changes: +LOPI600T; +METF-838; +TRUL10IN
[2020-08-05 10:58] LABS: BASO % 0.7 % (0.0-1.0); EOS # 0.3 10^3/uL (0.0-0.5); EOS % 4.9 % (0.0-3.0); HEMATOCRIT 47.4 % (42.0-52.0); HEMOGLOBIN 15.5 g/dl (13.5-17.5); LYMPH # 1.6 10^3/uL (1.5-5.0); LYMPH % 26.3 % (24.0-44.0); MEAN CORPUSCULAR HEMOGLOBIN 27.9 pg (27.0-33.0); MEAN CORPUSCULAR HGB CONC 32.7 g/dl (32.0-36.5); MEAN CORPUSCULAR VOLUME 85.4 fl (80.0-96.0); MONO # 0.5 10^3/uL (0.0-0.8); MONO % 7.7 % (2.0-8.0); NEUTROPHILS # 3.7 10^3/uL (1.5-8.5); NEUTROPHILS % 59.7 % (36.0-66.0); PLATELET COUNT, AUTOMATED 263 10^3/uL (150-450); RED BLOOD COUNT 5.55 10^6/uL (4.30-6.10); WHITE BLOOD COUNT 6.1 10^3/uL (4.0-10.0)
[2020-08-05 11:19] LABS: HEMOGLOBIN A1c 5.3 %
[2020-08-05 11:29] LABS: ALT/SGPT 25 U/L (12-78); BILIRUBIN,TOTAL 0.7 MG/DL (0.2-1.0); BLOOD UREA NITROGEN 21 MG/DL (7-18); CALCIUM LEVEL 8.7 MG/DL (8.5-10.1); CARBON DIOXIDE LEVEL 28 MEQ/L (21-32); CHLORIDE LEVEL 106 MEQ/L (98-107); CREATININE FOR GFR 0.94 MG/DL (0.70-1.30); GLOMERULAR FILTRATION RATE > 60.0 (>56); GLUCOSE, FASTING 96 MG/DL (70-100); POTASSIUM SERUM 4.6 MEQ/L (3.5-5.1); SODIUM LEVEL 138 MEQ/L (136-145)
[2020-08-05 11:30] LABS: ALBUMIN 3.8 GM/DL (3.2-5.2); CHOLESTEROL LEVEL 162 MG/DL (<200); CHOLESTEROL RISK RATIO 4.153 (<5); HDL CHOLESTEROL 39 MG/DL (>40); LDL CHOLESTEROL 107 MG/DL (<100); NON-HDL-C 123 MG/DL; TOTAL PROTEIN 7.4 GM/DL (6.4-8.2); TRIGLYCERIDES LEVEL 80 MG/DL (<150)
[2020-08-05 15:54] LABS: MALB URINE SIEMENS 20.3 MG/L; MAU/CREAT RATIO 12.4 MCG/MG (0.0-30.0)
== END ==
LOC: M LAB 10:21
PROVIDERS: ATTEND Physician Assistant
DX: E11.9 Type 2 diabetes mellitus without complications (principal)

== ENCOUNTER → 2020-10-07 | Outpatient (CLI) | payer OTHER ==
[~2020-10-07] MED LIST changes: +BENA1TAB24
== END ==
LOC: M LABSMTC 09:08
PROVIDERS: ATTEND Anesthesiology
DX: Z01.812 Encounter for preprocedural laboratory examination (principal); Z20.822 Contact with and (suspected) exposure to COVID-19

== ENCOUNTER 2020-10-12 09:46 | Day surgery (SDC) | payer OTHER ==
[~2020-10-12] VITALS: Ht 172.7 cm; Wt 83.5 kg
[~2020-10-12 09:46] MED LIST changes: +NS 1,000 ML IV ONE
[2020-10-12] MEDS ORDERED: propofoL 200 MG/20 ML VIAL As Ordered ONE ×2 (10:44→10:48)
--- NOTE | 2020-10-12 11:00 | ROOR ---
Patient Name: Mervin Maier Procedure Date: 10/12/2020 10:43 AM Date of : 1965 Age: 55 Room: [facility] Gender: Male Note Status: Finalized Procedure: Colonoscopy Indications: Positive Cologuard test Providers: Anatoly Roland Jr, MD Referring MD: Jessica MODI DO Requesting Provider: Medicines: Propofol per Anesthesia Complications: No immediate complications. Procedure: Pre-Anesthesia Assessment: - Prior to the procedure, a History and Physical was performed, and patient medications and allergies were reviewed. The patient is competent. The risks and benefits of the procedure and the sedation options and risks were discussed with the patient. All questions were answered and informed consent was obtained. Patient identification and proposed procedure were verified by the physician and the nurse in the pre-procedure area and in the procedure room. Mental Status Examination: alert and oriented. Airway Examination: normal oropharyngeal airway and neck mobility. Respiratory Examination: clear to auscultation. CV Examination: normal. ASA Grade Assessment: II - A patient with mild systemic disease. After reviewing the risks and benefits, the patient was deemed in satisfactory condition to undergo the procedure. The anesthesia plan was to use moderate sedation / analgesia (conscious sedation). Immediately prior to administration of medications, the patient was re-assessed for adequacy to receive sedatives. The heart rate, respiratory rate, oxygen saturations, blood pressure, adequacy of pulmonary ventilation, and response to care were monitored throughout the procedure. The physical status of the patient was re-assessed after the procedure. The Colonoscope was introduced through the anus and advanced to the cecum, identified by appendiceal orifice and ileocecal valve. The colonoscopy was performed without difficulty. The patient tolerated the procedure well. The quality of the bowel preparation was adequate. Findings: The recto-sigmoid colon, descending colon, ascending colon, cecum, appendiceal orifice and ileocecal valve appeared normal. Three polyps were found in the rectum and transverse colon. The polyps were small in size. These polyps were removed with a hot snare. Resection was complete, but the polyp tissue was only partially retrieved. A few small-mouthed diverticula were found in the sigmoid colon. Impression: - The recto-sigmoid colon, descending colon, ascending colon, cecum, appendiceal orifice and ileocecal valve are normal. - Three small polyps in the rectum and in the transverse colon, removed with a hot snare. Complete resection. Partial retrieval. - Diverticulosis in the sigmoid colon. Recommendation: - Discharge patient to home (ambulatory). - Repeat colonoscopy in 5 years for surveillance. Procedure Code(s): --- Professional --- 28869, Colonoscopy, flexible; with removal of tumor(s), polyp(s), or other lesion(s) by snare technique Diagnosis Code(s): --- Professional --- K62.1, Rectal polyp K63.5, Polyp of colon R19.5, Other fecal abnormalities K57.30, Diverticulosis of large intestine without perforation or abscess without bleeding CPT copyright 2019 [employer]. All rights reserved. The codes documented in this report are preliminary and upon facilities specialist review may be revised to meet current compliance requirements. Anatoly Roland MD Anatoly Roland Jr, MD 10/12/2020 10:59:55 AM Electronically signed by Anatoly Roland Jr, MD Number of Addenda: 0 Note Initiated On: 10/12/2020 10:43 AM Estimated Blood Loss: Estimated blood loss: none.
[2020-10-12 11:27] VITALS: BP 120/78
== END 2020-10-12 11:29 | disposition home or self-care (01) ==
LOC: M OPP 09:46
PROVIDERS: ATTEND Surgery
DX: R19.5 Other fecal abnormalities (principal); D12.6 Benign neoplasm of colon, unspecified; K62.1 Rectal polyp; K57.30 Diverticulosis of large intestine without perforation or abscess without bleeding

== ENCOUNTER → 2021-02-10 | Outpatient (CLI) | payer OTHER ==
[~2021-02-10] MED LIST changes: +BENA-8 PO; -BENA20TA8 PO; -NS 1,000 ML IV ONE
[2021-02-10 09:11] LABS: BASO % 0.7 % (0.0-1.0); EOS # 0.5 10^3/uL (0.0-0.5); EOS % 8.1 % (0.0-3.0); HEMATOCRIT 45.9 % (42.0-52.0); HEMOGLOBIN 15.1 g/dl (13.5-17.5); LYMPH # 1.3 10^3/uL (1.5-5.0); LYMPH % 20.7 % (24.0-44.0); MEAN CORPUSCULAR HEMOGLOBIN 27.8 pg (27.0-33.0); MEAN CORPUSCULAR HGB CONC 32.9 g/dl (32.0-36.5); MEAN CORPUSCULAR VOLUME 84.4 fl (80.0-96.0); MONO # 0.5 10^3/uL (0.0-0.8); MONO % 7.6 % (2.0-8.0); NEUTROPHILS # 3.8 10^3/uL (1.5-8.5); NEUTROPHILS % 62.4 % (36.0-66.0); PLATELET COUNT, AUTOMATED 277 10^3/uL (150-450); RED BLOOD COUNT 5.44 10^6/uL (4.30-6.10)
[2021-02-10 09:31] LABS: HEMOGLOBIN A1c 5.2 %
[2021-02-10 09:35] LABS: ALBUMIN 4.1 GM/DL (3.2-5.2); ALT/SGPT 31 U/L (12-78); BILIRUBIN,TOTAL 0.9 MG/DL (0.2-1.0); BLOOD UREA NITROGEN 23 MG/DL (7-18); CALCIUM LEVEL 9.5 MG/DL (8.5-10.1); CARBON DIOXIDE LEVEL 25 MEQ/L (21-32); CHLORIDE LEVEL 105 MEQ/L (98-107); CHOLESTEROL LEVEL 165 MG/DL (<200); CHOLESTEROL RISK RATIO 4.459 (<5); CREATININE FOR GFR 1.02 MG/DL (0.70-1.30); GLOMERULAR FILTRATION RATE > 60.0 (>56); GLUCOSE, FASTING 98 MG/DL (70-100); HDL CHOLESTEROL 37 MG/DL (>40); LDL CHOLESTEROL 79 MG/DL (<100); NON-HDL-C 128 MG/DL; POTASSIUM SERUM 4.4 MEQ/L (3.5-5.1); SODIUM LEVEL 139 MEQ/L (136-145); TOTAL PROTEIN 7.6 GM/DL (6.4-8.2); TRIGLYCERIDES LEVEL 244 MG/DL (<150)
[2021-02-10 11:03] LABS: MALB URINE SIEMENS 18.3 MG/L; MAU/CREAT RATIO 14.7 MCG/MG (0.0-30.0)
== END ==
LOC: M LAB 08:07
PROVIDERS: ATTEND Physician Assistant
DX: E11.9 Type 2 diabetes mellitus without complications (principal)

== ENCOUNTER → 2021-08-11 | Outpatient (CLI) | payer OTHER ==
[2021-08-11 09:41] LABS: BASO # 0.1 10^3/uL (0.0-0.2); BASO % 0.8 % (0.0-1.0); EOS # 0.5 10^3/uL (0.0-0.5); EOS % 6.9 % (0.0-3.0); HEMATOCRIT 45.3 % (42.0-52.0); LYMPH # 1.7 10^3/uL (1.5-5.0); LYMPH % 25.4 % (24.0-44.0); MEAN CORPUSCULAR HEMOGLOBIN 27.8 pg (27.0-33.0); MEAN CORPUSCULAR HGB CONC 33.1 g/dl (32.0-36.5); MONO # 0.6 10^3/uL (0.0-0.8); MONO % 8.6 % (2.0-8.0); NEUTROPHILS # 3.8 10^3/uL (1.5-8.5); NEUTROPHILS % 57.8 % (36.0-66.0); PLATELET COUNT, AUTOMATED 250 10^3/uL (150-450); RED BLOOD COUNT 5.39 10^6/uL (4.30-6.10); WHITE BLOOD COUNT 6.6 10^3/uL (4.0-10.0)
[2021-08-11 10:01] LABS: HEMOGLOBIN A1c 5.6 %
[2021-08-11 10:05] LABS: ALBUMIN 3.7 GM/DL (3.2-5.2); ALT/SGPT 28 U/L (12-78); BILIRUBIN,TOTAL 0.7 MG/DL (0.2-1.0); BLOOD UREA NITROGEN 20 MG/DL (7-18); CARBON DIOXIDE LEVEL 24 MEQ/L (21-32); CHLORIDE LEVEL 109 MEQ/L (98-107); CREATININE FOR GFR 1.02 MG/DL (0.70-1.30); GLOMERULAR FILTRATION RATE > 60.0 (>56); GLUCOSE, FASTING 109 MG/DL (70-100); POTASSIUM SERUM 4.2 MEQ/L (3.5-5.1); SODIUM LEVEL 141 MEQ/L (136-145); TOTAL PROTEIN 7.4 GM/DL (6.4-8.2)
== END ==
LOC: M LAB 08:55
PROVIDERS: ATTEND Physician Assistant
DX: E11.9 Type 2 diabetes mellitus without complications (principal)

== ENCOUNTER → 2022-02-02 | Outpatient (CLI) | payer OTHER ==
[2022-02-02 12:04] LABS: ALBUMIN 4.1 G/DL (3.2-5.2); ALKALINE PHOSPHATASE 85 U/L (46-116); ALT/SGPT 30 U/L (7.0-40); AST/SGOT 21 U/L (<34); BILIRUBIN,TOTAL 0.6 MG/DL (0.3-1.2); BLOOD UREA NITROGEN 15 MG/DL (9-23); CALCIUM LEVEL 9.1 MG/DL (8.5-10.1); CARBON DIOXIDE LEVEL 23 MMOL/L (20-31); CHLORIDE LEVEL 107 MMOL/L (98-107); CHOLESTEROL LEVEL 152 MG/DL (<200); CHOLESTEROL RISK RATIO 3.96 (<5); CREATININE FOR GFR 1.01 MG/DL (0.70-1.30); GLOMERULAR FILTRATION RATE > 60.0 (>56); GLUCOSE, FASTING 106 MG/DL (60-100); HDL CHOLESTEROL 38.3 MG/DL (>40); LDL CHOLESTEROL 73.5 MG/DL (<100); NON-HDL-C 114 MG/DL; POTASSIUM SERUM 4.4 MMOL/L (3.5-5.1); SODIUM LEVEL 142 MMOL/L (136-145); TOTAL PROTEIN 7.6 G/DL (5.7-8.2); TRIGLYCERIDES LEVEL 201 MG/DL (<150)
[2022-02-02 12:52] LABS: HEMOGLOBIN A1c 5.5 % (4.0-6.0)
== END ==
LOC: M LAB 10:52
PROVIDERS: ATTEND Physician Assistant
DX: E11.9 Type 2 diabetes mellitus without complications (principal)

== ENCOUNTER → 2022-04-27 | Outpatient (CLI) | payer OTHER ==
[~2022-04-27] MED LIST changes: +INSU100I6 SC; -LEVE1INJ5 SC
[2022-04-27 12:20] LABS: HEMOGLOBIN A1c 6.3 % (4.0-6.0)
[2022-04-27 12:41] LABS: ALKALINE PHOSPHATASE 81 U/L (46-116); ALT/SGPT 34 U/L (7.0-40); AST/SGOT 22 U/L (<34); BLOOD UREA NITROGEN 16 MG/DL (9-23); CARBON DIOXIDE LEVEL 25 MMOL/L (20-31); CHLORIDE LEVEL 106 MMOL/L (98-107); CREATININE FOR GFR 1.04 MG/DL (0.70-1.30); GLOMERULAR FILTRATION RATE > 60.0 (>56); GLUCOSE, FASTING 94 MG/DL (60-100); POTASSIUM SERUM 4.2 MMOL/L (3.5-5.1); SODIUM LEVEL 141 MMOL/L (136-145); TOTAL PROTEIN 7.5 G/DL (5.7-8.2)
[2022-04-27 16:46] LABS: CREATININE, URINE 164.7 MG/DL; MAU/CREAT RATIO 12.1 MCG/MG (0.0-30.0)
== END ==
LOC: M LAB 11:38
PROVIDERS: ATTEND Physician Assistant
DX: E11.9 Type 2 diabetes mellitus without complications (principal)

== ENCOUNTER → 2022-08-31 | Outpatient (CLI) | payer OTHER ==
[2022-08-31 10:39] LABS: ALBUMIN 3.8 G/DL (3.2-5.2); ALKALINE PHOSPHATASE 77 U/L (46-116); ALT/SGPT 26 U/L (7.0-40); AST/SGOT 14 U/L (<34); BILIRUBIN,TOTAL 0.7 MG/DL (0.3-1.2); BLOOD UREA NITROGEN 16 MG/DL (9-23); CALCIUM LEVEL 8.4 MG/DL (8.5-10.1); CARBON DIOXIDE LEVEL 23 MMOL/L (20-31); CHLORIDE LEVEL 108 MMOL/L (98-107); CREATININE FOR GFR 1.01 MG/DL (0.70-1.30); GLOMERULAR FILTRATION RATE > 60.0 (>56); GLUCOSE, FASTING 99 MG/DL (60-100); POTASSIUM SERUM 4.1 MMOL/L (3.5-5.1); SODIUM LEVEL 141 MMOL/L (136-145); TOTAL PROTEIN 7.1 G/DL (5.7-8.2)
[2022-08-31 10:47] LABS: HEMOGLOBIN A1c 5.7 % (4.0-6.0)
== END ==
LOC: M LAB 09:36
PROVIDERS: ATTEND Physician Assistant
DX: E11.9 Type 2 diabetes mellitus without complications (principal)

== ENCOUNTER → 2023-09-11 | Outpatient (CLI) | payer OTHER ==
[2023-09-11 09:15] LABS: BASO % 0.5 % (0.0-1.0); EOS # 0.4 10^3/uL (0.0-0.5); EOS % 6.2 % (0.0-3.0); HEMATOCRIT 46.8 % (42.0-52.0); HEMOGLOBIN 15.3 g/dl (13.5-17.5); LYMPH # 1.9 10^3/uL (1.5-5.0); LYMPH % 33.3 % (24.0-44.0); MEAN CORPUSCULAR HEMOGLOBIN 28.1 pg (27.0-33.0); MEAN CORPUSCULAR HGB CONC 32.7 g/dl (32.0-36.5); MONO # 0.5 10^3/uL (0.0-0.8); MONO % 9.5 % (2.0-8.0); NEUTROPHILS # 2.8 10^3/uL (1.5-8.5); NEUTROPHILS % 50.1 % (36.0-66.0); PLATELET COUNT, AUTOMATED 268 10^3/uL (150-450); RED BLOOD COUNT 5.44 10^6/uL (4.30-6.10); WHITE BLOOD COUNT 5.7 10^3/uL (4.0-10.0)
[2023-09-11 09:49] LABS: HEMOGLOBIN A1c 5.6 % (4.0-6.0)
[2023-09-11 09:50] LABS: ALKALINE PHOSPHATASE 91 U/L (46-116); ALT/SGPT 21 U/L (7.0-40); AST/SGOT 10 U/L (<34); BILIRUBIN,TOTAL 0.8 MG/DL (0.3-1.2); BLOOD UREA NITROGEN 20 MG/DL (9-23); CALCIUM LEVEL 9.8 MG/DL (8.5-10.1); CARBON DIOXIDE LEVEL 27 MMOL/L (20-31); CHLORIDE LEVEL 107 MMOL/L (98-107); CREATININE FOR GFR 1.12 MG/DL (0.70-1.30); GLOMERULAR FILTRATION RATE > 60.0 (>56); GLUCOSE, FASTING 104 MG/DL (60-100); POTASSIUM SERUM 4.4 MMOL/L (3.5-5.1); SODIUM LEVEL 141 MMOL/L (136-145); TOTAL PROTEIN 7.2 G/DL (5.7-8.2)
[2023-09-11 12:07] LABS: CREATININE, URINE 134.5 MG/DL
[2023-09-11 12:08] LABS: MAU/CREAT RATIO 6.6 MCG/MG (0.0-30.0)
== END ==
LOC: M LAB 08:38
PROVIDERS: ATTEND Physician Assistant
DX: E11.9 Type 2 diabetes mellitus without complications (principal)

== ENCOUNTER → 2024-03-13 | Outpatient (CLI) | payer OTHER ==
[2024-03-13 10:40] LABS: BASO # 0.1 10^3/uL (0.0-0.2); BASO % 0.9 % (0.0-1.0); EOS # 1.3 10^3/uL (0.0-0.5); EOS % 18.8 % (0.0-3.0); HEMATOCRIT 45.9 % (42.0-52.0); HEMOGLOBIN 14.9 g/dl (13.5-17.5); LYMPH # 1.8 10^3/uL (1.5-5.0); LYMPH % 27.7 % (24.0-44.0); MEAN CORPUSCULAR HEMOGLOBIN 28.1 pg (27.0-33.0); MEAN CORPUSCULAR HGB CONC 32.5 g/dl (32.0-36.5); MEAN CORPUSCULAR VOLUME 86.4 fl (80.0-96.0); MONO # 0.6 10^3/uL (0.0-0.8); MONO % 8.4 % (2.0-8.0); NEUTROPHILS # 2.9 10^3/uL (1.5-8.5); NEUTROPHILS % 43.9 % (36.0-66.0); PLATELET COUNT, AUTOMATED 267 10^3/uL (150-450); RED BLOOD COUNT 5.31 10^6/uL (4.30-6.10); WHITE BLOOD COUNT 6.7 10^3/uL (4.0-10.0)
[2024-03-13 10:58] LABS: PSA SCREENING 1.13 NG/ML (< 4.00)
[2024-03-13 11:00] LABS: ALBUMIN 4.1 G/DL (3.2-5.2); ALKALINE PHOSPHATASE 85 U/L (40-129); ALT/SGPT 20 U/L (7.0-40); AST/SGOT 13 U/L (<34); BILIRUBIN,TOTAL 0.7 MG/DL (0.3-1.2); BLOOD UREA NITROGEN 22 MG/DL (9-23); CALCIUM LEVEL 8.9 MG/DL (8.3-10.6); CARBON DIOXIDE LEVEL 27 MMOL/L (20-31); CHLORIDE LEVEL 108 MMOL/L (98-107); CHOLESTEROL LEVEL 179 MG/DL (<200); CHOLESTEROL RISK RATIO 4.47 (<5); CREATININE FOR GFR 0.97 MG/DL (0.70-1.30); GLOMERULAR FILTRATION RATE > 60.0 (>49); GLUCOSE, FASTING 110 MG/DL (74-106); LDL CHOLESTEROL 113.6 MG/DL (<100); POTASSIUM SERUM 4.8 MMOL/L (3.5-5.1); SODIUM LEVEL 145 MMOL/L (136-145); TOTAL PROTEIN 7.3 G/DL (5.7-8.2); TRIGLYCERIDES LEVEL 127 MG/DL (<150)
[2024-03-13 11:18] LABS: HEMOGLOBIN A1c 5.6 % (4.0-6.0)
== END ==
LOC: M LAB 10:07
PROVIDERS: ATTEND Physician Assistant
DX: R35.1 Nocturia (principal); E78.2 Mixed hyperlipidemia; E11.9 Type 2 diabetes mellitus without complications
CPT/HCPCS: 36415; 80053; 80061; 83036; 85025; G0103

== ENCOUNTER 2024-04-08 08:39 | Observation (INO) | payer OTHER ==
[~2024-04-08] VITALS: Ht 172.7 cm; Wt 87.5 kg
[~2024-04-08 08:39] MED LIST changes: -BENA1TAB24; +BENA1TAB24 PO; -LOPI600T; +LOPI600T PO; -METF-838; +METF-838 PO
[2024-04-08 09:41] LABS: BASO % 0.2 % (0.0-1.0); EOS # 0.4 10^3/uL (0.0-0.5); EOS % 3.9 % (0.0-3.0); HEMATOCRIT 43.6 % (42.0-52.0); HEMOGLOBIN 14.7 g/dl (13.5-17.5); LYMPH % 10.7 % (24.0-44.0); MEAN CORPUSCULAR HEMOGLOBIN 28.1 pg (27.0-33.0); MEAN CORPUSCULAR HGB CONC 33.7 g/dl (32.0-36.5); MEAN CORPUSCULAR VOLUME 83.2 fl (80.0-96.0); MONO # 0.8 10^3/uL (0.0-0.8); MONO % 8.3 % (2.0-8.0); NEUTROPHILS % 76.6 % (36.0-66.0); PLATELET COUNT, AUTOMATED 282 10^3/uL (150-450); RED BLOOD COUNT 5.24 10^6/uL (4.30-6.10); WHITE BLOOD COUNT 9.1 10^3/uL (4.0-10.0)
[2024-04-08 09:46] LABS: ERYTHROCYTE SEDIMENTATION RATE 22 mm/hr (0-20)
[2024-04-08] MEDS: MORPHINE 4 MG/ML 1ML VIAL IV ONE (10:02)
[2024-04-08 10:20] LABS: LIPASE 37 U/L (12-53)
[2024-04-08 10:21] LABS: C REACTIVE PROTEIN QUANTITATIV 2.63 MG/DL (<1.0)
[2024-04-08 10:22] LABS: ALBUMIN 3.5 G/DL (3.2-5.2); ALKALINE PHOSPHATASE 101 U/L (40-129); ALT/SGPT 25 U/L (7.0-40); AST/SGOT 18 U/L (<34); BILIRUBIN,TOTAL 0.8 MG/DL (0.3-1.2); BLOOD UREA NITROGEN 21 MG/DL (9-23); CALCIUM LEVEL 8.7 MG/DL (8.3-10.6); CARBON DIOXIDE LEVEL 22 MMOL/L (20-31); CHLORIDE LEVEL 103 MMOL/L (98-107); CREATININE FOR GFR 0.91 MG/DL (0.70-1.30); GLOMERULAR FILTRATION RATE > 60.0 (>49); GLUCOSE, FASTING 175 MG/DL (74-106); POTASSIUM SERUM 4.1 MMOL/L (3.5-5.1); SODIUM LEVEL 139 MMOL/L (136-145); TOTAL PROTEIN 7.1 G/DL (5.7-8.2)
[2024-04-08 10:25] LABS: CK-MB VALUE MASS < 1.0 NG/ML (<3.6)
[2024-04-08 10:30] LABS: CPK CREATINE PHOSPHOKINASE 110 U/L (46-171)
[2024-04-08] MEDS: HYDROMORPHONE HCL 0.5 MG/ 0.5 ML SYRINGE IV PRN ×2 (10:40→16:22)
[2024-04-08] MEDS ORDERED: ISOVUE-370 76% 100ML VIAL As Ordered ONE (11:56)
[2024-04-08] MEDS: MAALOX 30 ML SUSP *UDC PO ONE (14:16)
[2024-04-08] MEDS: LIDOCAINE VISCOUS 2% SOLN 15ML UDC PO ONE (14:17)
[2024-04-08] MEDS: SUCRALFATE 1 GM TAB PO ONE (14:17)
[2024-04-08] MEDS: NS (Normal Saline) 0.9% 1,000 ML IV ONE (16:07)
[2024-04-08] MEDS ORDERED: ATOR1TAB21 PO (16:57)
[2024-04-08] MEDS ORDERED: HOME MED LIST COMPLETE! XX SCH (17:00)
[2024-04-08] MEDS ORDERED: ALLE180T33 PO (17:00)
[2024-04-08] MEDS: PANTOPRAZOLE 40MG VIAL IV ONE (17:26)
[2024-04-08] MEDS: ONDANSETRON 4MG 2ML VIAL IV PRN (19:18)
[2024-04-08] MEDS: MORPHINE 2 MG/ML 1ML VIAL IV PRN (19:24)
[2024-04-08 20:45] VITALS: BP 118/63; TEMP 99.2; O2SAT 94
[2024-04-08] MEDS: MAALOX 30 ML SUSP *UDC PO SCH (20:53)
[2024-04-09] MEDS: ACETAMINOPHEN *IV* 1,000 MG in IV 1 EA IV ONE (00:01)
[2024-04-09] MEDS: MORPHINE 2 MG/ML 1ML VIAL IV PRN (00:01)
[2024-04-09 00:28] LABS: APPEARANCE, URINE CLEAR (CLEAR); BACTERIA, URINE AUTO NEGATIVE (NEGATIVE); BILIRUBIN, URINE AUTO NEGATIVE (NEGATIVE); BLOOD, URINE BLOOD 2+ (NEGATIVE); COLOR, URINE YELLOW (YELLOW); GLUCOSE, URINE (UA) AUTO NEGATIVE (NEGATIVE); KETONE, URINE AUTO TRACE mg/dL (NEGATIVE); LEUKOCYTE ESTERASE, URINE AUTO NEGATIVE (NEGATIVE); MUCUS, URINE SMALL (NEGATIVE); NITRITE, URINE AUTO NEGATIVE (NEGATIVE); PROTEIN, URINE AUTO NEGATIVE (NEGATIVE); RBC, URINE AUTO 5 /HPF (0-3); SPECIFIC GRAVITY URINE AUTO 1.021 (1.002-1.035); SQUAMOUS EPITHELIAL CELL UR AU 0 /HPF (0-6); UROBILINOGEN, URINE AUTO 0.2 mg/dL (0.0-2.0); WBC, URINE AUTO 0 /HPF (0-3)
[2024-04-09 01:51] LABS: AMPHETAMINES LEVEL URINE NEGATIVE (NEGATIVE); BARBITURATES URINE NEGATIVE (NEGATIVE)
[2024-04-09 01:52] LABS: BENZODIAZEPINES URINE NEGATIVE (NEGATIVE); CANNABINOIDS URINE NEGATIVE (NEGATIVE); COCAINE METABOLITE URINE NEGATIVE (NEGATIVE); METHADONE URINE NEGATIVE (NEGATIVE); PHENCYCLIDINE URINE NEGATIVE (NEGATIVE)
[2024-04-09 02:31] LABS: OPIATES URINE POSITIVE (NEGATIVE)
[2024-04-09 04:00] VITALS: BP 118/65; TEMP 99.1; O2SAT 98
[2024-04-09 07:25] LABS: HEMOGLOBIN 14.1 g/dl (13.5-17.5); MEAN CORPUSCULAR HEMOGLOBIN 28.1 pg (27.0-33.0); MEAN CORPUSCULAR HGB CONC 33.6 g/dl (32.0-36.5); MEAN CORPUSCULAR VOLUME 83.7 fl (80.0-96.0); PLATELET COUNT, AUTOMATED 257 10^3/uL (150-450); RED BLOOD COUNT 5.02 10^6/uL (4.30-6.10); WHITE BLOOD COUNT 12.8 10^3/uL (4.0-10.0)
[2024-04-09] MEDS: PANTOPRAZOLE 40MG VIAL IV SCH (07:45)
[2024-04-09] MEDS: SUCRALFATE 1 GM TAB PO SCH (07:46)
[2024-04-09 08:00] LABS: ALBUMIN 3.2 G/DL (3.2-5.2); ALKALINE PHOSPHATASE 210 U/L (40-129); ALT/SGPT 59 U/L (7.0-40); AST/SGOT 37 U/L (<34); BILIRUBIN,TOTAL 1.5 MG/DL (0.3-1.2); BLOOD UREA NITROGEN 13 MG/DL (9-23); CALCIUM LEVEL 8.8 MG/DL (8.3-10.6); CARBON DIOXIDE LEVEL 25 MMOL/L (20-31); CHLORIDE LEVEL 101 MMOL/L (98-107); CREATININE FOR GFR 0.82 MG/DL (0.70-1.30); GLOMERULAR FILTRATION RATE > 60.0 (>49); GLUCOSE, FASTING 124 MG/DL (74-106); SODIUM LEVEL 139 MMOL/L (136-145); TOTAL PROTEIN 6.8 G/DL (5.7-8.2)
[2024-04-09 12:08] VITALS: BP 133/82; TEMP 98.2; O2SAT 96
[2024-04-09] MEDS: NS (Normal Saline) 0.9% 1,000 ML IV ONE (14:14)
[2024-04-09] MEDS: KETOROLAC 30 MG/ML 1ML VIAL IV PRN (14:15)
[2024-04-09] MEDS: AMPICILLIN SOD/SULBACTAM SOD 3 GM in D5W MINI-BAG 100 ML IV SCH (15:58)
[2024-04-09] MEDS ORDERED: AMPICILLIN SOD/SULBACTAM SOD 1.5 GM in DEXTROSE 5% (D5W) ADV/MINI-BAG 50 ML IV SCH (16:00)
[2024-04-09 19:50] VITALS: BP 116/70; TEMP 97.8; O2SAT 95
[2024-04-10 04:16] VITALS: BP 100/57; TEMP 98.9; O2SAT 97
[2024-04-10] MEDS ORDERED: GLUCAGON INJ 1MG VIAL SC PRN (11:55)
[2024-04-10] MEDS ORDERED: GLUCOSE 4 GM CHEW PO PRN (11:55)
[2024-04-10] MEDS ORDERED: DEXTROSE 50% 50ML SYRINGE IV PRN (11:55)
[2024-04-10] MEDS ORDERED: INSULIN LISPRO (NovoLOG) PER UNIT SC SCH ×2 (12:00→21:00)
[2024-04-10] MEDS ORDERED: IBUP-1730 PO (12:07)
[2024-04-10] MEDS ORDERED: AMOX875T2 PO (12:08)
[2024-04-10] MEDS ORDERED: PANT40TA29 PO (12:09)
== END 2024-04-10 12:25 | disposition home or self-care (01) ==
LOC: M ED 08:39 → M ED INP 08:40 → M MS4PR 20:41
PROVIDERS: ADMIT Student in an Organized Health Care Education/Training Program; ATTEND Student in an Organized Health Care Education/Training Program
DX: K80.00 Calculus of gallbladder with acute cholecystitis without obstruction (principal); D13.6 Benign neoplasm of pancreas; I10 Essential (primary) hypertension; E78.5 Hyperlipidemia, unspecified; E11.9 Type 2 diabetes mellitus without complications; Z79.84 Long term (current) use of oral hypoglycemic drugs; Z79.2 Long term (current) use of antibiotics; Z79.899 Other long term (current) drug therapy
CPT/HCPCS: 36415; 71275; 74174; 74181; 76705; 80053; 80307; 81001; 82550; 82553; 83605; 83690; 84484; 85025; 85027; 85652; 86140; 93005; 96365; 96366; 96375; 96376; 99285; J0131; J0295; J1171; J1885; J2405; J2470; Q9967

== ENCOUNTER 2024-06-30 11:11 | Day surgery (SDC) | payer MEDICAID, OTHER ==
[~2024-06-30] VITALS: Ht 172.7 cm; Wt 90.7 kg
[~2024-06-30 11:11] MED LIST changes: +ALLE180T33 PO; +AMOX875T2 PO; +ATOR40TA75 PO; +IBUP-1730 PO; +METF500T13 PO; +PANT40TA29 PO
[2024-06-30] MEDS ORDERED: propofoL 200 MG/20 ML VIAL As Ordered ONE (12:20)
[2024-06-30 12:55] VITALS: TEMP 96.9
[2024-06-30 13:10] VITALS: BP 127/70; O2SAT 98
== END 2024-06-30 13:19 | disposition home or self-care (01) ==
LOC: M OPP 11:11
PROVIDERS: ATTEND Surgery
DX: Z12.11 Encounter for screening for malignant neoplasm of colon (principal); D12.2 Benign neoplasm of ascending colon; K57.30 Diverticulosis of large intestine without perforation or abscess without bleeding; K64.0 First degree hemorrhoids; Z86.0100 Personal history of colon polyps, unspecified; E11.9 Type 2 diabetes mellitus without complications; I10 Essential (primary) hypertension; E78.00 Pure hypercholesterolemia, unspecified; Z79.899 Other long term (current) drug therapy; Z79.84 Long term (current) use of oral hypoglycemic drugs; Z88.6 Allergy status to analgesic agent

== ENCOUNTER 2024-07-08 06:13 | Day surgery (SDC) | payer OTHER ==
[~2024-07-08] VITALS: Ht 172.7 cm; Wt 90.2 kg
[2024-07-08] MEDS ORDERED: INSULIN LISPRO (NovoLOG) PER UNIT SC PRN (07:00)
[2024-07-08] MEDS ORDERED: GLUCOSE 4 GM CHEW PO PRN (07:00)
[2024-07-08] MEDS ORDERED: LR 1,000 ML IV SCH ×2 (07:00→09:05)
[2024-07-08] MEDS ORDERED: DEXTROSE 50% 50ML SYRINGE IV PRN (07:00)
[2024-07-08] MEDS ORDERED: GLUCAGON INJ 1MG VIAL SC PRN (07:00)
[2024-07-08] MEDS ORDERED: fentaNYL 100 MCG/2 ML INJECTION As Ordered ONE (07:10)
[2024-07-08] MEDS ORDERED: propofoL 200 MG/20 ML VIAL As Ordered ONE (07:11)
[2024-07-08] MEDS ORDERED: LIDOCAINE 2% 100MG/5ML SDV (FOR ANES.) As Ordered ONE (07:11)
[2024-07-08] MEDS ORDERED: ACETAMINOPHEN 1000MG/100ML IV BAG As Ordered ONE (07:11)
[2024-07-08] MEDS ORDERED: ROCURONIUM BROMIDE 50MG/5ML VIAL As Ordered ONE (07:11)
[2024-07-08] MEDS ORDERED: ONDANSETRON 4MG 2ML VIAL As Ordered ONE (07:11)
[2024-07-08] MEDS ORDERED: MIDAZOLAM INJ 2MG/2ML VIAL As Ordered ONE (07:11)
[2024-07-08] MEDS ORDERED: KETOROLAC 30 MG/ML 1ML VIAL As Ordered ONE (07:50)
[2024-07-08] MEDS ORDERED: SUGAMMADEX SODIUM 500 MG/5 ML VIAL As Ordered ONE (07:50)
[2024-07-08] MEDS ORDERED: HYDROmorphone HCL 2MG/ML 1ML VIAL As Ordered ONE (08:54)
[2024-07-08] MEDS ORDERED: fentaNYL 100 MCG/2 ML INJECTION IV PRN (09:05)
[2024-07-08] MEDS ORDERED: ONDANSETRON 4MG 2ML VIAL IV PRN (09:05)
[2024-07-08] MEDS ORDERED: oxyCODONE 5MG TAB PO PRN (09:05)
[2024-07-08] MEDS ORDERED: MEPERIDINE 25 MG/ML 1ML VIAL IV PRN (09:05)
[2024-07-08] MEDS ORDERED: HYDROMORPHONE HCL 0.5 MG/ 0.5 ML SYRINGE IV PRN (09:05)
[2024-07-08] MEDS ORDERED: dexmedeTOMIDine (4MCG/ML)200MCG/50ML BTL (PRECEDEX) As Ordered ONE (10:07)
[2024-07-08 10:55] VITALS: BP 139/67; TEMP 96.9; O2SAT 97
== END 2024-07-08 11:35 | disposition home or self-care (01) ==
LOC: M SDC 06:13
PROVIDERS: ATTEND Surgery
DX: K80.10 Calculus of gallbladder with chronic cholecystitis without obstruction (principal); E11.9 Type 2 diabetes mellitus without complications; I10 Essential (primary) hypertension; E78.00 Pure hypercholesterolemia, unspecified; Z79.84 Long term (current) use of oral hypoglycemic drugs; Z79.899 Other long term (current) drug therapy; Z88.6 Allergy status to analgesic agent
CPT/HCPCS: 47562; 88304; J0131; J0665; J1100; J1171; J1885; J2250; J2405; J3010; S2900

== ENCOUNTER 2024-07-09 15:46 | Emergency (ER) | payer OTHER ==
[~2024-07-09] VITALS: Ht 172.7 cm; Wt 90.9 kg
[2024-07-09 16:35] LABS: BASO # 0.1 10^3/uL (0.0-0.2); BASO % 0.2 % (0.0-1.0); EOS # 0.2 10^3/uL (0.0-0.5); EOS % 0.6 % (0.0-3.0); HEMATOCRIT 41.3 % (42.0-52.0); HEMOGLOBIN 13.4 g/dl (13.5-17.5); LYMPH # 1.8 10^3/uL (1.5-5.0); LYMPH % 6.7 % (24.0-44.0); MEAN CORPUSCULAR HEMOGLOBIN 27.8 pg (27.0-33.0); MEAN CORPUSCULAR HGB CONC 32.4 g/dl (32.0-36.5); MEAN CORPUSCULAR VOLUME 85.7 fl (80.0-96.0); MONO % 7.8 % (2.0-8.0); NEUTROPHILS # 21.7 10^3/uL (1.5-8.5); NEUTROPHILS % 83.8 % (36.0-66.0); PLATELET COUNT, AUTOMATED 282 10^3/uL (150-450); RED BLOOD COUNT 4.82 10^6/uL (4.30-6.10); WHITE BLOOD COUNT 25.9 10^3/uL (4.0-10.0)
[2024-07-09 16:56] LABS: LIPASE 36 U/L (12-53)
[2024-07-09 16:58] LABS: ALBUMIN 3.5 G/DL (3.2-5.2); ALKALINE PHOSPHATASE 95 U/L (40-129); ALT/SGPT 43 U/L (7.0-40); AST/SGOT 36 U/L (<34); BILIRUBIN,DIRECT 0.8 MG/DL (<0.4); BILIRUBIN,TOTAL 2.4 MG/DL (0.3-1.2); BLOOD UREA NITROGEN 21 MG/DL (9-23); CALCIUM LEVEL 8.9 MG/DL (8.3-10.6); CARBON DIOXIDE LEVEL 25 MMOL/L (20-31); CHLORIDE LEVEL 103 MMOL/L (98-107); CREATININE FOR GFR 1.15 MG/DL (0.70-1.30); GLOMERULAR FILTRATION RATE 72.9 (>49); GLUCOSE, FASTING 138 MG/DL (74-106); POTASSIUM SERUM 3.9 MMOL/L (3.5-5.1); SODIUM LEVEL 139 MMOL/L (136-145); TOTAL PROTEIN 6.9 G/DL (5.7-8.2)
[2024-07-09] MEDS ORDERED: ISOVUE-370 76% 100ML VIAL As Ordered ONE (18:51)
[2024-07-09] MEDS: MORPHINE 4 MG/ML 1ML VIAL IV ONE (18:58)
[2024-07-09 19:03] LABS: CK-MB VALUE MASS < 1.0 NG/ML (<3.6)
[2024-07-09 19:04] LABS: CPK CREATINE PHOSPHOKINASE 104 U/L (46-171); MB/CK RELATIVE INDEX 0.96 (< OR =4)
[2024-07-09] MEDS: PIPERACILLIN/TAZOBACTAM SOD 4.5 GM in DEXTROSE 5% (D5W) ADV/MINI-BAG 50 ML IV ONE (19:08)
[2024-07-09 19:24] LABS: KETONE, URINE AUTO RFX TRACE mg/dL (NEGATIVE); LEUKOCYTE ESTERASE UR AUTO RFX NEGATIVE (NEGATIVE); MUCUS, URINE RFX SMALL (NEGATIVE); NITRITE, URINE AUTO RFX NEGATIVE (NEGATIVE); RBC, URINE AUTO RFX 2 /HPF (0-3); SQUAM EPITHELIAL CELL UR AURFX 1 /HPF (0-6); WBC, URINE AUTO RFX 2 /HPF (0-3)
[2024-07-09] MEDS: HYDROMORPHONE HCL 0.5 MG/ 0.5 ML SYRINGE IV ONE (20:15)
[2024-07-09 20:45] LABS: CK-MB VALUE MASS < 1.0 NG/ML (<3.6)
[2024-07-09 20:47] LABS: CPK CREATINE PHOSPHOKINASE 114 U/L (46-171); MB/CK RELATIVE INDEX 0.87 (< OR =4)
[2024-07-09 22:00] LABS: HEMATOCRIT 41.4 % (42.0-52.0); HEMOGLOBIN 13.3 g/dl (13.5-17.5); MEAN CORPUSCULAR HEMOGLOBIN 27.9 pg (27.0-33.0); MEAN CORPUSCULAR HGB CONC 32.1 g/dl (32.0-36.5); MEAN CORPUSCULAR VOLUME 86.8 fl (80.0-96.0); PLATELET COUNT, AUTOMATED 246 10^3/uL (150-450); RED BLOOD COUNT 4.77 10^6/uL (4.30-6.10); WHITE BLOOD COUNT 21.4 10^3/uL (4.0-10.0)
[2024-07-09 22:32] LABS: ALBUMIN 3.4 G/DL (3.2-5.2); BILIRUBIN,TOTAL 2.6 MG/DL (0.3-1.2); CALCIUM LEVEL 8.8 MG/DL (8.3-10.6); CREATININE FOR GFR 1.13 MG/DL (0.70-1.30); GLOMERULAR FILTRATION RATE 74.4 (>49); POTASSIUM SERUM 4.1 MMOL/L (3.5-5.1); TOTAL PROTEIN 6.9 G/DL (5.7-8.2)
[2024-07-09 23:38] VITALS: O2SAT 92
[2024-07-10] MEDS: NS (Normal Saline) 0.9% 1,000 ML IV SCH (00:09)
[2024-07-10] MEDS: ACETAMINOPHEN *IV* 1,000 MG in IV 1 EA IV ONE (01:23)
[2024-07-10] MEDS: PIPERACILLIN/TAZOBACTAM SOD 4.5 GM in DEXTROSE 5% (D5W) ADV/MINI-BAG 50 ML IV ONE (02:20)
[2024-07-10] MEDS: HYDROMORPHONE HCL 0.5 MG/ 0.5 ML SYRINGE IV PRN ×2 (03:08→07:54)
[2024-07-10 08:54] VITALS: BP 121/88; TEMP 99; O2SAT 92
== END 2024-07-10 08:56 | disposition short-term general hospital (02) ==
LOC: EDBD 15:46 → M ED 15:46
DX: A41.9 Sepsis, unspecified organism (principal); G89.18 Other acute postprocedural pain; R10.9 Unspecified abdominal pain; J18.9 Pneumonia, unspecified organism; R09.02 Hypoxemia; E80.6 Other disorders of bilirubin metabolism; E11.9 Type 2 diabetes mellitus without complications; I10 Essential (primary) hypertension; Z90.89 Acquired absence of other organs; Z88.6 Allergy status to analgesic agent; Z91.048 Other nonmedicinal substance allergy status; Z79.899 Other long term (current) drug therapy; Z79.02 Long term (current) use of antithrombotics/antiplatelets; Z79.4 Long term (current) use of insulin
CPT/HCPCS: 71275; 74177; 80048; 80076; 81001; 82550; 82553; 83605; 83690; 84484; 85025; 85027; 87040; 93005; 93041; 94760; 96361; 96374; 96375; 96376; 99285; J0131; J1171; J2543; Q9967

== ENCOUNTER → 2024-09-06 | Outpatient (REF) | payer OTHER ==
[2024-09-06 18:59] LABS: BASO # 0.0 10^3/uL (0.0-0.2); BASO % 0.5 % (0.0-1.0); EOS # 0.5 10^3/uL (0.0-0.5); EOS % 6.6 % (0.0-3.0); LYMPH # 1.5 10^3/uL (1.5-5.0); LYMPH % 20.3 % (24.0-44.0); MONO # 0.6 10^3/uL (0.0-0.8); MONO % 7.8 % (2.0-8.0); NEUTROPHILS # 4.9 10^3/uL (1.5-8.5); NEUTROPHILS % 64.5 % (36.0-66.0); PLATELET COUNT, AUTOMATED 291 10^3/uL (150-450)
[2024-09-06 19:05] LABS: ALT/SGPT 30 U/L (7.0-40); AST/SGOT 20 U/L (<34); CALCIUM LEVEL 9.7 MG/DL (8.3-10.6); CARBON DIOXIDE LEVEL 22 MMOL/L (20-31); CHLORIDE LEVEL 107 MMOL/L (98-107); CHOLESTEROL LEVEL 160 MG/DL (<200); CHOLESTEROL RISK RATIO 3.67 (<5); CREATININE FOR GFR 0.85 MG/DL (0.70-1.30); GLOMERULAR FILTRATION RATE > 90.0 (>49); NON-HDL-C 116.5 MG/DL; POTASSIUM SERUM 3.9 MMOL/L (3.5-5.1); SODIUM LEVEL 141 MMOL/L (136-145); TRIGLYCERIDES LEVEL 417 MG/DL (<150)
[2024-09-06 19:27] LABS: CREATININE, URINE 92.2 MG/DL; MALB URINE SIEMENS 8.0 MG/L; MAU/CREAT RATIO 8.6 MCG/MG (0.0-30.0)
[2024-09-06 19:38] LABS: ESTIMATED AVERAGE GLUCOSE 120.0 MG/DL (60-110)
== END ==
LOC: M SFHCLERA 11:36
PROVIDERS: ATTEND Internal Medicine
DX: E11.65 Type 2 diabetes mellitus with hyperglycemia (principal)

== ENCOUNTER → 2024-10-30 | Outpatient (CLI) | payer OTHER ==
[2024-10-30 11:31] LABS: CHOLESTEROL LEVEL 153.0 MG/DL (<200); CHOLESTEROL RISK RATIO 4.16 (<5); LDL CHOLESTEROL 52.3 MG/DL (<100); NON-HDL-C 116.3 MG/DL; TRIGLYCERIDES LEVEL 320.0 MG/DL (<150)
== END ==
LOC: M LAB 09:48
PROVIDERS: ATTEND Internal Medicine
DX: E78.2 Mixed hyperlipidemia (principal)